=== PATIENT | female | born 1950 | race Caucasian/White ===

== ENCOUNTER 2019-09-06 09:37 | Observation (INO) | payer OTHER ==
[2019-09-06 10:20] LABS: Absolute Lymphocytes (CBC) 1.5 K/uL (0.7-4.9); Basophils % 0.8 % (0-1.3); Hematocrit 33.9 % (36.0-45.0); Lymphocytes % 32.3 % (15.3-44.8); MPV 9.3 fL (7.6-11.3); RBC Red Blood Cell Count 3.71 M/uL (3.86-4.86)
--- NOTE | 2019-09-06 10:33 | RAD REPORT ---
EXAM DESCRIPTION: RAD - Chest Single View - 09/06/2019 10:28 am CLINICAL HISTORY: CHEST PAIN Chest pain. COMPARISON: Chest Pa And Lat (2 Views) dated 10/07/2017 FINDINGS: Portable technique limits examination quality. The lungs are grossly clear. The heart is upper limit of normal in size. No displaced fractures. IMPRESSION: No acute intrathoracic process suspected.
--- NOTE | 2019-09-06 10:33 | RAD REPORT ---
EXAM DESCRIPTION: CT - Head Brain Wo Cont - 09/06/2019 10:16 am CLINICAL HISTORY: Headache;Syncope Headache, drowsiness COMPARISON: Brain Wo Cont dated 09/04/2019 TECHNIQUE: All CT scans are performed using dose optimization technique as appropriate and may inclu de automated exposure control or mA/KV adjustment according to patient size. FINDINGS: No intracranial hemorrhage, hydrocephalus or extra-axial fluid collection.No areas of brai n edema or evidence of midline shift. The paranasal sinuses and mastoids are clear. The calvarium is intact. IMPRESSION: No acute intracranial abnormality.
[2019-09-06 10:38] LABS: Protime INR 1.16
[2019-09-06 10:39] LABS: ALT/SGPT 31 U/L (12-78); AST/SGOT 32 U/L (15-37); Alkaline Phosphatase 90 U/L (45-117); BUN Blood Urea Nitrogen 15 mg/dL (7-18); Bicarbonate 22 mmol/L (21-32); Bilirubin Direct 0.1 mg/dL (0-0.2); Bilirubin Total 0.4 mg/dL (0.2-1.0); Glucose Level 127 mg/dL (74-106); Magnesium 1.9 mg/dL (1.8-2.4); NT PRO-BNP 290 pg/mL (<125); Protein, Total 5.9 g/dL (6.4-8.2); Sodium Level 145 mmol/L (136-145); Troponin (Emerg Dept Use Only) < 0.02 ng/mL (0.0-0.045)
[2019-09-06] MEDS ORDERED: NA CHLORIDE 0.9% 500 ML ONE (10:53)
--- NOTE | 2019-09-06 10:58 | EDPHYS ---
Physician Documentation [facility] Name: Chloé Engel Age: 69 yrs Sex: Female : 1950 Arrival Date: 09/06/2019 Time: 09:51 Bed 2 Private MD: ED Physician Javier Estrada HPI: 09/05 10:22 This 69 yrs old Female presents to ER via Unassigned with complaints of cp Syncope. 10:22 The patient has experienced syncope, lost consciousness. Onset: The symptoms/episode cp began/occurred this morning. Duration: This was a single episode, that lasted an unknown period of time. 10:22 Associated injury: The patient did not suffer any apparent associated injury. cp 10:22 Associated signs and symptoms: Pertinent positives: chest pain, dizziness, Pertinent cp negatives: abdominal pain, diaphoresis, diarrhea, headache, numbness, palpitations, vomiting, weakness. Current symptoms: Currently, the patient is not experiencing any symptoms, the patient feels back to baseline. Historical: - Allergies: 10:26 Vicodin; jl7 10:26 [place]; jl7 10:26 Keflex; jl7 10:26 PENICILLINS; jl7 - Home Meds: 10:26 atorvastatin oral oral [Active]; carvedilol oral oral [Active]; jl7 - PMHx: 10:26 Sjogren's Syndrome; Fibromyalgia; Hyperlipidemia; Hypertension; jl7 - Immunization history:: Adult Immunizations unknown. - Social history:: Smoking status: Patient denies any tobacco usage or history of. ROS: 10:23 Constitutional: Negative for body aches, chills, fever, poor PO intake. cp 10:23 ENT: Negative for ear pain, sore throat, difficulty swallowing, difficulty handling secretions. 10:23 Cardiovascular: Positive for chest pain, Negative for edema, palpitations. 10:23 Respiratory: Negative for cough, shortness of breath, wheezing. 10:23 Abdomen/GI: Negative for abdominal pain, nausea, vomiting, and diarrhea. 10:23 Back: Negative for radiated pain. 10:23 MS/extremity: Negative for injury or acute deformity, paresthesias. 10:23 Neuro: Positive for headache, syncope, Negative for altered mental status, weakness. 10:23 All other systems are negative. Exam: 10:10 ECG was reviewed by the Attending Physician. cp 10:25 Constitutional: The patient appears in no acute distress, alert, awake, cp non-diaphoretic, non-toxic, well developed, well nourished. 10:25 Head/Face: Normocephalic, atraumatic. cp 10:25 Eyes: Periorbital structures: appear normal, Pupils: equal, round, and reactive to light and accomodation, Extraocular movements: intact throughout, Conjunctiva: normal, no exudate, no injection, Sclera: no appreciated abnormality, Lids and lashes: appear normal, bilaterally. 10:25 ENT: External ear(s): are unremarkable, Nose: is normal, Mouth: Lips: moist, Oral mucosa: moist, Posterior pharynx: Airway: no evidence of obstruction, patent. 10:25 Neck: ROM/movement: is normal, is supple, without pain, no range of motions limitations, no nuchal rigidity. 10:25 Chest/axilla: Inspection: normal, Palpation: is normal, no crepitus, no tenderness. 10:25 Cardiovascular: Rate: bradycardic, Rhythm: regular, Edema: is not appreciated, JVD: is not appreciated. 10:25 Respiratory: the patient does not display signs of respiratory distress, Respirations: normal, no use of accessory muscles, no retractions, labored breathing, is not present. 10:25 Abdomen/GI: Inspection: abdomen appears normal, Bowel sounds: active, all quadrants, cp Palpation: abdomen is soft and non-tender, in all quadrants, involuntary guarding, is not appreciated, Rectal exam: Stool: brown, guaiac negative. 10:25 Back: pain, is absent, ROM is normal. cp 10:25 Neuro: Orientation: to person, place \T\ time. Mentation: is normal, Cerebellar function: is grossly normal, Motor: moves all fours, strength is normal, Sensation: is normal. Vital Signs: 09:45 BP 106 / 68; Pulse 53; Resp 15; Temp 97.2; Pulse Ox 100% ; Weight 64.86 kg; Height 5 jl7 ft. 3 in. (160.02 cm); Pain 8/10; 10:31 BP 117 / 66; Pulse 56; Resp 15; Pulse Ox 100% ; jl7 10:43 BP 127 / 64 LA Supine; Pulse 56; jl7 10:45 BP 129 / 73 Sitting; Pulse 58; jl7 10:47 BP 107 / 72 Standing; Pulse 56; jl7 10:57 BP 120 / 65 RA; Pulse 57; Resp 16; Pulse Ox 100% ; jl7 11:30 BP 127 / 66; Pulse 55; Resp 17; Pulse Ox 100% ; jl7 12:15 BP 118 / 68; Pulse 55; Resp 14; Pulse Ox 100% ; jl7 13:30 BP 123 / 64; Pulse 53; Resp 17; Pulse Ox 100% ; jl7 14:05 BP 116 / 71; Pulse 55; Resp 15; Pulse Ox 100% ; jl7 09:45 Body Mass Index 25.33 (64.86 kg, 160.02 cm) 7 MDM: 09:58 Patient medically screened. 10:30 Differential Diagnosis: aortic aneurysm, cardiac arrhythmia, drug effect, idiopathic cp syncope, seizure, sepsis, transient ischemic attack, vasovagal episode. 10:55 Data reviewed: vital signs, nurses notes, lab test result(s), EKG, radiologic studies, cp CT scan, plain films. Test interpretation: by ED physician or midlevel provider: ECG. 10:56 Physician consultation: Cj Anaya MD was called at 10:50, was contacted at 10:50, regarding admission, to the telemetry unit. patient's condition. 11:00 Counseling: I had a detailed discussion with the patient and/or guardian regarding: the cp historical points, exam findings, and any diagnostic results supporting the discharge/admit diagnosis, lab results, radiology results, the need for further work-up and treatment in the hospital. 09/05 09:58 Order name: Finger stick results - FOR PT WITH NO ID; Complete Time: 11:16 [facility] 09/05 10:00 Order name: Basic Metabolic Panel; Complete Time: 10:45 09/05 10:51 Interpretation: Normal except: CL 117; GLUC 127; GFR 82. cp 09/05 10:00 Order name: CBC with Diff; Complete Time: 10:45 09/05 10:45 Interpretation: Normal except: RBC 3.71; HGB 11.3; HCT 33.9; PLT 119. 09/05 10:00 Order name: LFT's; Complete Time: 10:45 09/05 10:00 Order name: Magnesium; Complete Time: 10:45 09/05 10:00 Order name: NT PRO-BNP; Complete Time: 10:45 cp 09/05 10:00 Order name: PT-INR; Complete Time: 10:45 cp 09/05 10:00 Order name: Troponin (emerg Dept Use Only); Complete Time: 10:45 cp 09/05 11:43 Order name: Basic Metabolic Panel EDMS 09/05 11:43 Order name: Basic Metabolic Panel EDMS 09/05 11:43 Order name: CBC with Automated Diff EDMS 09/05 11:43 Order name: CBC with Automated Diff EDMS 09/05 11:43 Order name: Troponin I EDMS 09/05 11:43 Order name: Troponin I EDMS 09/05 10:00 Order name: XRAY Chest (1 view); Complete Time: 10:45 cp 09/05 10:00 Order name: EKG; Complete Time: 10:01 cp 09/05 10:00 Order name: Cardiac monitoring; Complete Time: 10:20 cp 09/05 10:00 Order name: EKG - Nurse/Tech; Complete Time: 10:20 cp 09/05 10:00 Order name: IV Saline Lock; Complete Time: 10:20 cp 09/05 10:00 Order name: Labs collected and sent; Complete Time: 10:20 cp 09/05 10:00 Order name: CT Head Brain wo Cont; Complete Time: 10:45 cp 09/05 11:43 Order name: Echo with Doppler EDMS 09/05 11:43 Order name: EKG Electrocardiogram EDMS 09/05 11:43 Order name: EKG Electrocardiogram EDMS 09/05 11:43 Order name: EKG Electrocardiogram EDMS 09/05 11:43 Order name: EKG Electrocardiogram EDMS 09/05 11:43 Order name: Troponin I EDMS 09/05 11:43 Order name: Carotid Artery Bilateral EDMS 09/05 10:00 Order name: O2 Per Protocol; Complete Time: 10:20 cp 09/05 10:00 Order name: O2 Sat Monitoring; Complete Time: 10:20 cp 09/05 10:00 Order name: Blood Pressure Recheck: bilateral upper extremity; Complete Time: 10:54 cp 09/05 10:00 Order name: Orthostatics; Complete Time: 10:54 cp EC:10 Rate is 49 beats/min. Rhythm is regular. MS interval is prolonged at 210 msec. QRS cp interval is normal. QT interval is normal. Interpreted by me. Reviewed by me. Administered Medications: 10:54 Drug: NS 0.9% 500 ml Route: IV; Rate: bolus; Site: left antecubital; jl7 11:45 Follow up: Response: No adverse reaction; IV Status: Completed infusion; IV Intake: jl7 500ml 12:36 Drug: NS 0.9% 1000 ml Route: IV; Rate: 100 ml/hr; Site: left wrist; jl7 12:40 Follow up: Response: No adverse reaction; IV Status: Infusion continued upon admission jl7 Point of Care Testing: Blood Glucose: 09:45 Blood Glucose: 108 mg/dL; jl7 Ranges: Critical Glucose Levels:Adult <50 mg/dl or >400 mg/dl <40 mg/dl or >180 mg/dl Disposition: 11:00 Chart complete. cp 17:24 Co-signature as Attending Physician, Javier Estrada MD I agree with the assessment and kdr plan of care. Disposition: 09/06/19 10:57 Hospitalization ordered by Cj Anaya for Observation. Preliminary diagnosis is Syncope and collapse. - Bed requested for Telemetry/MedSurg (observation). - Status is Observation. jl7 - Condition is Stable. - Problem is new. - Symptoms have improved. Signatures: Dispatcher [employer] EDMS Bertha Andrea Kevin, MD MD [facility] James Bauer PA PA cp Rafi Stevenson, RN RN jl7 Corrections: (The following items were deleted from the chart) 13:16 10:57 Hospitalization Ordered by Cj Anaya MD for Observation. Preliminary diagnosis bd is Syncope and collapse. Bed requested for Telemetry/MedSurg (observation). Status is Observation. Condition is Stable. Problem is new. Symptoms have improved. cp 14:45 13:16 09/06/2019 10:57 Hospitalization Ordered by Cj Anaya MD for Observation. jl7 Preliminary diagnosis is Syncope and collapse. Bed requested for Telemetry/MedSurg (observation). Status is Observation. Condition is Stable. Problem is new. Symptoms have improved. bd
--- NOTE | 2019-09-06 10:58 | ER ---
Nurse's Notes [facility] Name: Chloé Engel Age: 69 yrs Sex: Female : 1950 Arrival Date: 09/06/2019 Time: 09:51 Bed 2 Private MD: Diagnosis: Syncope and collapse Presentation: 09/05 09:45 Method Of Arrival: EMS: [facility] jl7 09:45 Chief complaint: EMS states: Pt was at rehab for neck pain, had a syncopal episode, did jl7 not hit her head. 09:45 Acuity: [place] 2 jl7 10:20 Coronavirus screen: Patient denies a cough. Patient denies shortness of breath or jl7 difficulty breathing. Patient denies measured and/or subjective temperature greater than 100.4F prior to today's visit. Patient denies travel on a cruise ship or to a country the [facility] currently lists as an affected area. Patient denies contact with known and/or suspected case of COVID-19. Proceed with normal triage. Ebola Screen: No symptoms or risks identified at this time. Initial Sepsis Screen: Does the patient meet any 2 criteria? No. Patient's initial sepsis screen is negative. Does the patient have a suspected source of infection? No. Patient's initial sepsis screen is negative. Risk Assessment: Do you want to hurt yourself or someone else? Patient reports no desire to harm self or others. Onset of symptoms was September 06, 2019. Care prior to arrival: Medication(s) given: Normal saline infusion, 1000 mL, IV initiated. 20 GA, in the left antecubital area, Glucose check: 106 Initial BP 87 systolic, repeat just [facility] to hospital 116 systolic. Triage Assessment: 09:45 General: Appears in no apparent distress. uncomfortable, Behavior is calm, cooperative, jl7 appropriate for age. Pain: Complains of pain in left hip Pain currently is 8 out of 10 on a pain scale. Pain began years ago. Neuro: Level of Consciousness is awake, alert, obeys commands, Oriented to person, place, time, situation, Boiler Room Operator are equal bilaterally weak bilaterally Chronic weakness. Moves all extremities. Speech is normal, Facial symmetry appears normal, Reports a syncopal episode. Cardiovascular: Patient's skin is warm and dry. Rhythm is sinus bradycardia with 1st degree heart block Chest pain is denied. Respiratory: Airway is patent Respiratory effort is even, unlabored, shallow, Respiratory pattern is regular, symmetrical. GI: No signs and/or symptoms were reported involving the gastrointestinal system. : No signs and/or symptoms were reported regarding the genitourinary system. Derm: Skin is pink, warm \T\ dry. Historical: - Allergies: 10:26 Vicodin; jl7 10:26 [place]; jl7 10:26 Keflex; jl7 10:26 PENICILLINS; jl7 - Home Meds: 10:26 atorvastatin oral oral [Active]; carvedilol oral oral [Active]; jl7 - PMHx: 10:26 Sjogren's Syndrome; Fibromyalgia; Hyperlipidemia; Hypertension; jl7 - Immunization history:: Adult Immunizations unknown. - Social history:: Smoking status: Patient denies any tobacco usage or history of. Screenin:31 Abuse screen: Denies threats or abuse. Denies injuries from another. Nutritional jl7 screening: No deficits noted. Tuberculosis screening: No symptoms or risk factors identified. Fall Risk IV access (20 points). Total Huynh Fall Scale indicates No Risk (0-24 pts). Assessment: 09:45 General: See triage assessment. jl7 10:45 Reassessment: ERP at bedside discussing results and POC. jl7 10:45 Neuro: Level of Consciousness is awake, alert, obeys commands, Oriented to person, jl7 place, time, situation. Cardiovascular: Patient's skin is warm and dry. 12:00 Reassessment: Patient appears in no apparent distress at this time. No changes from jl7 previously documented assessment. Patient and/or family updated on plan of care and expected duration. Pain level reassessed. Patient is alert, oriented x 3, equal unlabored respirations, skin warm/dry/pink. 12:37 Reassessment: Pt requesting to go to bathroom. Pt transported to bathroom via 7 wheelchair. 12:38 Reassessment: pt's daughter [phone]. jl7 12:38 Cardiovascular: Chest pain is denied. jl7 13:30 Reassessment: Patient appears in no apparent distress at this time. No changes from jl7 previously documented assessment. Patient and/or family updated on plan of care and expected duration. Pain level reassessed. Patient is alert, oriented x 3, equal unlabored respirations, skin warm/dry/pink. 14:27 Reassessment: Patient appears in no apparent distress at this time. No changes from jl7 previously documented assessment. Patient and/or family updated on plan of care and expected duration. Pain level reassessed. Patient is alert, oriented x 3, equal unlabored respirations, skin warm/dry/pink. Vital Signs: 09:45 BP 106 / 68; Pulse 53; Resp 15; Temp 97.2; Pulse Ox 100% ; Weight 64.86 kg; Height 5 jl7 ft. 3 in. (160.02 cm); Pain 8/10; 10:31 BP 117 / 66; Pulse 56; Resp 15; Pulse Ox 100% ; jl7 10:43 BP 127 / 64 LA Supine; Pulse 56; jl7 10:45 BP 129 / 73 Sitting; Pulse 58; jl7 10:47 BP 107 / 72 Standing; Pulse 56; jl7 10:57 BP 120 / 65 RA; Pulse 57; Resp 16; Pulse Ox 100% ; jl7 11:30 BP 127 / 66; Pulse 55; Resp 17; Pulse Ox 100% ; jl7 12:15 BP 118 / 68; Pulse 55; Resp 14; Pulse Ox 100% ; jl7 13:30 BP 123 / 64; Pulse 53; Resp 17; Pulse Ox 100% ; jl7 14:05 BP 116 / 71; Pulse 55; Resp 15; Pulse Ox 100% ; jl7 09:45 Body Mass Index 25.33 (64.86 kg, 160.02 cm) jl7 ED Course: 09:45 Arm band placed on right wrist. jl7 09:45 Patient has correct armband on for positive identification. Placed in gown. Bed in low jl7 position. Call light in reach. Side rails up X 1. court recording monitor on. Pulse ox on. NIBP on. Warm blanket given. 09:45 Maintain EMS IV. Dressing intact. Good blood return noted. Site clean \T\ dry. Gauge \T\ jl 7 site: 20 Right AC. 09:50 Initial lab(s) drawn, by me, sent to lab. EKG done, by ED staff, reviewed by James MARCH. 09:51 Patient arrived in ED. jl7 09:52 [facility] cp 09:52 Javier Estrada MD is Attending Physician. cp 10:16 CT Head Brain wo Cont In Process Unspecified. EDMS 10:23 Triage completed. jl7 10:28 XRAY Chest (1 view) In Process Unspecified. EDMS 10:33 Rafi Stevenson RN is Primary Nurse. jl7 10:56 Cj Anaya MD is Hospitalizing Provider. cp 11:01 Served as a cofounder during rectal exam. jl7 12:01 Missed attempt(s): 20 gauge in right forearm. mt 12:17 Inserted saline lock: 22 gauge in left wrist, using aseptic technique. ks7 13:39 Echocardiogram with doppler done by staff technologist. tc 14:28 Patient admitted, IV remains in place. intact, No redness/swelling at site. jl7 Administered Medications: 10:54 Drug: NS 0.9% 500 ml Route: IV; Rate: bolus; Site: left antecubital; jl7 11:45 Follow up: Response: No adverse reaction; IV Status: Completed infusion; IV Intake: jl7 500ml 12:36 Drug: NS 0.9% 1000 ml Route: IV; Rate: 100 ml/hr; Site: left wrist; jl7 12:40 Follow up: Response: No adverse reaction; IV Status: Infusion continued upon admission jl7 Point of Care Testing: Blood Glucose: 09:45 Blood Glucose: 108 mg/dL; jl7 Ranges: Intake: 11:45 IV: 500ml; Total: 500ml. jl7 Outcome: 10:57 Decision to Hospitalize by Provider. cp 14:27 Admitted to Tele accompanied by [facility], via wheelchair, room 230, with chart, Report jl7 called to GRETA Falcon 14:27 Condition: stable 14:27 Discharge instructions given to patient, Instructed on the need for admit, Demonstrated understanding of instructions. 14:45 Patient left the ED. jl7 Signatures: Dispatcher [employer] EDMS Loulou Worrell, line patrolman EKG Ttc James Bauer PA PA Rafi Stevenson RN RN jl7 Thompson, Moriah Darcie Thompson RN RN ks7 Corrections: (The following items were deleted from the chart) 10:30 10:20 Chief complaint: EMS states: Pt was at rehab for neck pain, had a syncopal jl7 episode, did not hit her head jl7 10:30 10:20 Method Of Arrival: EMS: [facility] jl7 jl7 10:30 10:20 BP 116 / 68; Pulse 53bpm; Resp 15bpm; Pulse Ox 100%; Temp 97.2F; 64.86 kg; Height jl7 5 ft. 3 in.; BMI: 25.3; Pain 8/10; jl7 10:30 10:20 Acuity: [place] 2 jl7 jl7 14:26 09:45 BP 0 / 68; Pulse 53bpm; Resp 15bpm; Pulse Ox 100%; Temp 97.2F; 64.86 kg; Height 5 jl7 ft. 3 in.; BMI: 25.3; Pain 8/10; jl7
--- OUTSIDE RECORDS SUMMARY | 2019-09-06 11:13 | XMS REPORT | Continuity of Care Document ---
:1950 Author Organization [employer] [facility] Care Team Providers Name Role Phone [employer] [facility] Unavailable Un available Problems Problem Status Onset Classification Date Comments Sourc e Date Reported Cervical Active Problem 08/26/2019 [facility] radiculopathy Neuro (disorder) Headache (finding) Active Problem 08/26/2019 [facility] Hyperlipidemia Active Problem 08/26/2019 Misc her (disorder) Neuro Hypertensive Active Problem 08/26/2019 [facility] r disorder, systemic N euro arterial (disorder) Paresthesia Active Problem 08/26/2019 [facility] (finding) Neuro Peripheral nerve Active Problem 08/26/2019 Mi jose disease (disorder) N euro Lumbar Active Problem 08/26/2019 [facility] radiculopathy Neuro (disorder) Amnesia (finding) Active Problem 08/26/2019 [facility] Neuro Medications Medication Details Route Status Patient Ordering Order Source Instructions Provider Date baclofen 10 mg oral 10 mg = 1 Active Mi jose tablet tab, PO, 020 Neuro Bedtime, # 30 tab, 3 Refill(s), Pharmacy: [facility] [id number] DULoxetine 60 mg 60 mg = 1 Active Misch er oral delayed release cap, PO, 019 Ne uro capsule Daily, # 30 cap, 0 Refill(s) Hydroxychloroquine 200 mg = 1 Active Mi jose Sulfate 200 MG Oral tab, PO, 019 Millie ro Tablet Daily, 0 Refill(s) SUMAtriptan 50 mg 50 mg = 1 Active Misc her oral tablet tab, PO, 019 Neuro ONCE, 0 Refill(s) atorvastatin 80 mg 80 mg = 1 Active Mis rocio oral tablet tab, PO, 019 Neuro Bedtime, # 30 tab, 0 Refill(s) montelukast 10 mg 10 mg = 1 Active Misc her oral tablet tab, PO, 019 Neuro Daily, 0 Refill(s) ramipril 10 mg oral 10 mg = 1 Active Mi jose capsule cap, PO, 019 Neuro Daily, # 30 cap, 0 Refill(s) topiramate 100 mg 100 mg = 1 Active Mis rocio oral tablet tab, PO, 019 Neuro BID, 0 Refill(s) carvedilol 25 mg 25 mg = 1 Active Misch er oral tablet tab, PO, 019 Neuro BID, # 180 tab, 0 Refill(s) Allergies, Adverse Reactions, Alerts Substance Category Reaction Severity Reaction Status Date Comments S ource type Reported sulfa drugs Assertion Drug Active Mi jose allergy Neuro codeine Assertion Drug Active Mische r allergy Neuro penicillin Assertion Drug Active Mis rocio allergy Neuro Vicodin Assertion Drug Active Mische r allergy Neuro meloxicam Assertion Drug Active Misc her allergy Neuro traMADol Assertion Drug Active Misch er allergy Neuro HYDROcodone Assertion Drug Active Mi jose allergy Neuro Immunizations No Data Provided for This Section Results Order Name Results Value Reference Date Interpretation Comments Masha rce Range ANEMIA Vitamin B12 704 200 - 1100 08/23 Result [facility] STUDY Lvl Comment: Neuro FASTING:YES<b r/>
FASTI NG: YES

Lab test performed by:
[facility]
[address] [facility]
[place] [address]
Misael Diggs CHEM PANEL Glucose Lvl 98 65 - 99 08/23 Result [facility] /2019 Comment: Neuro
Fasting reference interval

Lab test performed by:
[facility]
[address] [facility]
[place] [address]
Misael Diggs CHEM PANEL BUN 15 7 - 25 08/23cher /2019 Neuro CHEM PANEL Creatinine 0.67 0.50 - 08/23 Result [facility] Lvl 0.99 Comment: For Neuro patients >49 years of age, the reference limit
for Creatinine is approximately 13% higher for people
id entified as -Ameri can. CHEM PANEL eGFR NON-AFR. 90 > OR = 60 08/23 Misch er [place] mL/min/1.7 /2020 Neuro 3m2 CHEM PANEL eGFR 104 > OR = 60 08/23 Mische r [place] mL/min/1.7 /2020 Neuro 3m2 CHEM PANEL B/C Ratio NOT 6 - 22 08/23 [facility] APPLICABLE /2019 Neuro CHEM PANEL Sodium Lvl 143 135 - 146 08/23 [facility] /2019 Neuro CHEM PANEL Potassium Lvl 4.0 3.5 - 5.3 08/23 Misch er /2019 Neuro CHEM PANEL Chloride Lvl 110 98 - 110 08/23 [facility] /2019 Neuro CHEM PANEL CO2 26 20 - 32 / [facility] /2020 Neuro CHEM PANEL Calcium Lvl 9.1 8.6 - 10.4 08/23 Mische r /2019 Neuro CHEM PANEL Total Protein 6.4 6.1 - 8.1 08/23 Misch er /2019 Neuro CHEM PANEL Albumin Lvl 3.8 3.6 - 5.1 08/23 [facility] /2019 Neuro CHEM PANEL Globulin 2.6 1.9 - 3.7 08/23 [facility] /2019 Neuro CHEM PANEL A/G Ratio 1.5 1.0 - 2.5 08/23 [facility] /2019 Neuro CHEM PANEL Bili Total 0.5 0.2 - 1.2 08/23 [facility] /2019 Neuro CHEM PANEL Alk Phos 100 37 - 153 08/23 [facility] /2019 Neuro CHEM PANEL ASPARTATE 21 10 - 35 08/23 [facility] TRANSAMINASE /2019 Neuro CHEM PANEL ALANINE 16 6 - 29 08/23 [facility] AMINOTRANSFER /2019 Neuro ASE HEMATOLOGY WBC X 10x3 6.1 3.8 - 10.8 08/23 Result /2019 Comment: Neuro
Lab test performed by:
[facility]
[address] [facility] [address]
[place] [address]
Misael Diggs HEMATOLOGY RBC X 10x6 4.05 3.80 - 08/23 [facility] 5.10 /2020 Neuro HEMATOLOGY Hgb 12.2 11.7 - 08/23 [facility] 15.5 /2020 Neuro HEMATOLOGY Hct 37.6 35.0 - 08/23 [facility] 45.0 /2020 Neuro HEMATOLOGY MCV 92.8 80.0 - 08/23 [facility] 100.0 /2020 Neuro HEMATOLOGY MCH 30.1 27.0 - 08/23 [facility] 33.0 /2020 Neuro HEMATOLOGY MCHC 32.4 32.0 - 08/23 [facility] 36.0 Neuro HEMATOLOGY RDW 11.8 11.0 - 08/23 [facility] 15.0 Neuro HEMATOLOGY Platelet 144 140 - 400 08/23 [facility] Neuro HEMATOLOGY MPV 11.4 7.5 - 12.5 08/23 [facility] Neuro HEMATOLOGY Neutrophils # 3148 1500 - 08/23 [facility] 7800 Neuro HEMATOLOGY Lymphocytes # 2312 850 - 3900 08/23 Misc her /2019 Neuro HEMATOLOGY Monocytes # 451 200 - 950 08/23 [facility] Neuro HEMATOLOGY Eosinophils # 159 15 - 500 08/23 M[facility] r Neuro HEMATOLOGY Basophils # 31 0 - 200 08/23 [facility] HEMATOLOGY Segs 51.6 08/23 [facility] HEMATOLOGY Lymphocytes 37.9 08/23 [facility] Neuro HEMATOLOGY Monocytes 7.4 08/23 Mis Neuro HEMATOLOGY Eosinophils 2.6 08/23 [facility] HEMATOLOGY Basophils 0.5 08/23 [facility] HEMATOLOGY Sed Rate 9 < OR = 30 08/23 Result [facility] mm/hr Comment: Neuro
Lab test performed by:
[facility]
[address] [place] [address]
[place] [address]
Misael Diggs IMMUNOLOGY C-REACTIVE 0.6 <8.0 mg/L 08/23 Result [facility] Comment: Neuro
Lab test performed by:
[facility]
[address] [place] [address]
[place] [address]
Misael Diggs Pathology Reports No Data Provided for This Section Diagnostic Reports No Data Provided for This Section Consultation Notes No Data Provided for This Section Discharge Summaries No Data Provided for This Section History and Physicals No Data Provided for This Section Vital Signs Vital Sign Value Date Comments Source Systolic (mm Hg) 141 08/23/2019 [facility] Millie ro Diastolic (mm Hg) 80 08/23/2019 [facility] Ne uro Heart Rate 72 08/23/2019 [facility] Neuro Respitory Rate 16 08/23/2019 [facility] Neuro Height 162.56 cm 08/23/2019 [facility] Weight 65.909 08/23/2019 [facility] BMI Calculated 24.94 08/23/2019 [facility] Systolic (mm Hg) 150 06/16/2019 [facility] Millie ro Diastolic (mm Hg) 84 06/16/2019 [facility] Ne uro Heart Rate 84 06/16/2019 [facility] Respitory Rate 16 06/16/2019 [facility] Height 162.56 cm 06/16/2019 [facility] Weight 68.182 06/16/2019 [facility] BMI Calculated 25.8 06/16/2019 [facility] Systolic (mm Hg) 130 12/30/2018 [facility] Millie ro Diastolic (mm Hg) 76 12/30/2018 [facility] Ne uro Heart Rate 70 12/30/2018 [facility] Respitory Rate 16 12/30/2018 [facility] Height 162.56 cm 12/30/2018 [facility] Weight 68.636 12/30/2018 [facility] BMI Calculated 25.97 12/30/2018 [facility] Systolic (mm Hg) 136 10/13/2018 [facility] Millei ro Diastolic (mm Hg) 75 10/13/2018 [facility] Ne uro Heart Rate 61 10/13/2018 [facility] Respitory Rate 16 10/13/2018 [facility] Height 162.56 cm 10/13/2018 [facility] BMI Calculated 24.68 08/17/2018 [facility] Heart Rate 77 08/17/2018 [facility] Respitory Rate 16 08/17/2018 [facility] Systolic (mm Hg) 113 08/17/2018 [facility] Millie ro Diastolic (mm Hg) 71 08/17/2018 [facility] Ne uro Height 165.1 cm 08/17/2018 [facility] Neuro Weight 67.273 08/17/2018 [facility] Neuro Encounters Location Location Encounter Encounter Reason Attending ADM GA Stat us Source Details Type Number For Provider Date Date Visit [facility] Outpatient [id number] [place] 08/17 08/18 [facility] Neurology [facility] Outpatient [id number] [place] 09/13 [facility] MNA Outpatient [id number] [place] 09/13 09/14 [facility] Neurology [facility] Neuro [facility] Outpatient [id number] [place] 10/13 [facility] [place] MNA Outpatient [id number] [place] 10/13 10/14 [facility] Out[facility] [id number] [facility] 11[facility]15 [facility]ulatory [id number] [place] 11/15 11/15 [facility] Outpatient [id number] [facility] 11[facility]23 [facility] [place] [facility] [id number] [place] 11/23 11/23 [facility] Outpatient [id number] [facility] 12[facility]01 [facility]ulatory [id number] [place] 12/01 12/01 [facility] Outpatient [id number] [facility] 12[facility]30 [facility] Outpatient [id number] [place] 12/30 12/31 [facility] Outpatient [id number] [facility] 06/15 [facility]2020 [facility] MNA Outpatient [id number] Cj 06/15 06/16 [facility] /2019 Neuro [facility] Outpatient [id number] [facility] 08/22 [facility]NA Outpatient [id number] Cj 08/22 08/23 [facility] /2019 [facility] [id number] [facility] 10/04 [facility] Outpatient [id number] [facility] 12/18 [facility] [place] [facility] [id number] [facility] 12/18 [facility]2020 [place] Procedures No Data Provided for This Section Assessment and Plan No Data Provided for This Section Plan of Care No Data Provided for This Section Social History Social History Date Source Social History TypeResponse 08/23/2019 [facility] Smoking Status Never smoker; Exposure to Tobacco Smoke None; Cigarette Smoking Last 365 Days No; Reg Smoking Cessation Counseling No entered on: 08/23/19 Family History No Data Provided for This Section Advance Directives No Data Provided for This Section Functional Status No Data Provided for This Section
[2019-09-06] MEDS ORDERED: ONDANSETRON 4 MG/2 ML VIAL IV PRN (11:38)
[2019-09-06] MEDS ORDERED: NA CHLORIDE 0.9% 1,000 ML ONE (11:50)
[2019-09-06] MEDS: NA CHLORIDE 0.9% 1,000 ML IV SCH ×2 (12:00→17:14)
--- NOTE | 2019-09-06 13:28 | RAD REPORT ---
EXAM DESCRIPTION: - CP - 09/06/2019 1:14 pm CLINICAL HISTORY: syncope COMPARISON: No comparisons TECHNIQUE: Real-time sonographic evaluation of bilateral carotid and vertebral systems was performed . Boswell scale and Doppler interrogation were performed with waveform tracing bilaterally. FINDINGS: Normal high resistance waveforms are noted in both external carotid arteries. The common c arotid arteries and internal carotid arteries show normal low resistance waveforms. Mild plaquing changes are present in each bulb. Visually there is no significant luminal narrowing. N o suspicious waveform pattern seen. Peak systolic and end diastolic velocity values and the ICA/CCA r atios are in the non-hemodynamically significant range. Antegrade flow seen in both vertebral arteries. Velocity values and ratios were recorded and are retained in the patient's imaging records. IMPRESSION: No significant atherosclerotic changes noted. No evidence of a hemodynamically significant stenosis.
[2019-09-06 15:09] VITALS: BMI 24.5
[2019-09-06] MEDS ORDERED: ACETAMINOPHEN 500 MG TAB PO PRN (16:42)
[2019-09-06] MEDS ORDERED: ASPIRIN EC 81 MG TAB PO SCH (21:00)
[2019-09-06] MEDS ORDERED: BACLOFEN 10 MG TAB PO SCH (21:00)
[2019-09-07] MEDS: NA CHLORIDE 0.9% 1,000 ML IV SCH (03:14)
[2019-09-07 05:42] LABS: Absolute Lymphocytes (CBC) 2.3 K/uL (0.7-4.9); Basophils % 0.6 % (0-1.3); Lymphocytes % 39.6 % (15.3-44.8); MPV 9.2 fL (7.6-11.3); RBC Red Blood Cell Count 3.81 M/uL (3.86-4.86)
[2019-09-07 05:44] LABS: Potassium 3.7 mmol/L (3.5-5.1)
--- NOTE | 2019-09-07 06:32 | P.SSS ---
Patient History Date of Service: 09/07/19 Reason for admission: SYNCOPE History of Present Illness: MS. SERRANO IS A PATIENT WITH CERVICAL RADICULOPATHY, POLYARTHRITIS WITH OA, SHE WAS IN REHAB AND SHE HAD SEVERE PAIN IN L HAND WHILE DOING HAND THERAPY, THE PAIN WENT TO NECK AND SHE PASSED OUT. SHE HAS NO CHEST PAIN. Allergies acetaminophen [From Vicodin] Allergy (Verified 09/06/19 15:39) Nausea/Vomiting cephalexin [From Keflex] Allergy (Verified 09/06/19 15:39) Nausea/Vomiting codeine Allergy (Verified 09/06/19 15:39) Nausea/Vomiting hydrocodone [From Vicodin] Allergy (Verified 09/06/19 15:39) Nausea/Vomiting meloxicam Allergy (Verified 09/06/19 15:39) Nausea/Vomiting Penicillins Allergy (Verified 09/06/19 15:39) Nausea/Vomiting Home Medications: Acetaminophen [Tylenol Extra Strength] 1 tab PO BEDTIME PRN 09/06/19 Aspirin [Aspirin EC 81 MG] 1 tab PO BEDTIME 09/06/19 Atorvastatin Calcium [Lipitor] 1 tab PO DAILY 09/06/19 Baclofen [Lioresal*] 1 tab PO BEDTIME 09/06/19 Duloxetine HCl [Cymbalta] 1 cap PO DAILY 09/06/19 Montelukast [Singulair*] 1 tab PO DAILY 09/06/19 Ramipril [Altace] 1 tab PO DAILY 09/06/19 Topiramate [Topamax*] 1 tab PO DAILY 09/06/19 - Past Medical/Surgical History Has patient received pneumonia vaccine in the past: Yes Diabetic: No -: Sjogren's Syndrome -: Fibromyalgia -: Hyperlipidemia -: Hypertension - Social History Smoking Status: Never smoker Alcohol use: No CD- Drugs: No Caffeine use: Yes Place of Residence: Home Review of Systems 10-point ROS is otherwise unremarkable Physical Examination - Vital Signs Temperature: 97.5 F Blood Pressure: 125/67 Pulse: 56 Respirations: 16 Pulse Ox (%): 97 - Physical Exam General: Alert, In no apparent distress HEENT: Atraumatic, PERRLA, Mucous membr. moist/pink, EOMI, Sclerae nonicteric Neck: Supple, 2+ carotid pulse no bruit, No LAD, Without JVD or thyroid abnormality Respiratory: Clear to auscultation bilaterally, Normal air movement Cardiovascular: Regular rate/rhythm, Normal S1 S2 Gastrointestinal: Normal bowel sounds, No tenderness Musculoskeletal: No tenderness Integumentary: No rashes Neurological: Normal gait, Normal speech, Normal strength at 5/5 x4 extr, Normal tone, Normal affect Lymphatics: No axilla or inguinal lymphadenopathy - Studies Laboratory Data (last 24 hrs) 09/06/19 10:10: PT 13.7 H, INR 1.16 09/06/19 10:10: WBC 4.6, Hgb 11.3 L, Hct 33.9 L, Plt Count 119 L 09/06/19 10:10: Sodium 145, Potassium 4.0, BUN 15, Creatinine 0.71, Glucose 127 H, Magnesium 1.9, Total Bilirubin 0.4, AST 32, ALT 31, Alkaline Phosphatase 90 - Diagnosis (Problem(s)) (1) Vasovagal episode Current Visit: Yes Status: Acute Plan: THIS IS NOT WHAT WE NEED ADMISSION FOR BUT ER DECIDED TO ADMIT. SHE IS STABLE TO GO HOME. I SAW HER LAST NIGHT. (2) HTN (hypertension) Current Visit: Yes Status: Chronic (3) Cervical radicular pain Current Visit: Yes Status: Chronic Plan: SHE WAS SENT BY DR. FELIPE FOR PT. SHE NEEDS TO KNOW THAT THIS IS NOT A CURABLE CONDITION. SHE NEEDS TO TAKE COSAMINE ASU DAILY BUT SHE IS NOT DOING SO. I WOULD AVOID NSAIDS MOST END UP GIVING COMPLICATIONS. - Disposition Disposition: ROUTINE DISCHARGE
--- NOTE | 2019-09-07 07:34 | EKG ---
Test Date: 2019-09-06 Test Time: 10:05:21 [employer] Machine Operator: GAUTAM MEASUREMENT RESULTS: Intervals: Rate: 49 NE: 210 QRSD: 92 QT: 536 QTc: 484 [place]: P: 33 NE: 210 QRS: 0 T: 38 INTERPRETIVE STATEMENTS: Marked sinus bradycardia with 1st degree AV block Septal infarct, age undetermined Abnormal ECG No previous ECG available for comparison Electronically Signed On 09-07-19 07:32:32 CDT by Rex Cooney
[2019-09-07] MEDS ORDERED: DULOXETINE 30 MG CAP PO SCH (09:00)
[2019-09-07] MEDS ORDERED: HOME MED 1 EA UNK (Duloxetine Hcl [Cymbalta] 1 CAP) PO SCH (09:00)
[2019-09-07] MEDS ORDERED: ASPIRIN EC 81 MG TAB PO SCH (09:00)
[2019-09-07] MEDS ORDERED: MONTELUKAST 10 MG TAB PO SCH (09:00)
[2019-09-07] MEDS ORDERED: TOPIRAMATE 100 MG TAB PO SCH (09:00)
[2019-09-07] MEDS ORDERED: ATORVASTATIN 80 MG TAB PO SCH (09:00)
[2019-09-07 09:16] VITALS: O2SAT 96
--- NOTE | 2019-09-07 09:45 | ECHO ---
HEIGHT: 5 ft 4 in WEIGHT: 143 lb 0 oz DATE OF STUDY: 09/06/[address]: James Bauer PAC 2-DIMENSIONAL: YES M.MODE: YES DOPPLER: YES COLOR FLOW: YES TDS: NO PORTABLE: YES DEFINITY: NO BUBBLE STUDY: NO DIAGNOSIS: SYNCOPE CARDIAC HISTORY: CATHERIZATION: YES SURGERY: NO PROSTHETIC VALVE: NO PACEMAKER: NO MEASUREMENTS (cm) DIASTOLIC (NORMALS) SYSTOLIC (NORMALS) IVSd 1.2 (0.6-1.2) LA Diam 2.8 (1.9-4.0) LVEF 69% LVIDd 5.0 (3.5-5.7) LVIDs 3.1 (2.0-3.5) %FS 39% LVPWd 1.2 (0.6-1.2) Ao Diam 2.6 (2.0-3.7) 2 DIMENSIONAL ASSESSMENT: RIGHT ATRIUM: NORMAL LEFT ATRIUM: NORMAL RIGHT VENTRICLE: NORMAL LEFT VENTRICLE: NORMAL TRICUSPID VALVE: NORMAL MITRAL VALVE: NORMAL PULMONIC VALVE: NORMAL AORTIC VALVE: NORMAL PERICARDIAL EFFUSION: NONE AORTIC ROOT: NORMAL LEFT VENTRICULAR WALL MOTION: NORMAL DOPPLER/COLOR FLOW: NORMAL COMMENTS: NORMAL 2D ECHOCARDIOGRAM WITH DOPPLER. NO WALL MOTION ABNORMALITY. NO EFFUSION. TECHNOLOGIST: Nelsy العلي
[2019-09-07 09:52] VITALS: BP 133/67; TEMP 97
== END 2019-09-07 09:52 | disposition home or self-care (01) ==
LOC: ER 09:37 → ERHOLD 11:37 → 2ND 14:27
PROVIDERS: ADMIT Internal Medicine; ATTEND Internal Medicine
DX: R55 Syncope and collapse (principal); I10 Essential (primary) hypertension; M54.12 Radiculopathy, cervical region; M13.0 Polyarthritis, unspecified; Z11.59 Encounter for screening for other viral diseases; R00.1 Bradycardia, unspecified; I44.0 Atrioventricular block, first degree; R94.31 Abnormal electrocardiogram [ECG] [EKG]; M35.00 Sjogren syndrome, unspecified; M79.7 Fibromyalgia; E78.5 Hyperlipidemia, unspecified; Z79.899 Other long term (current) drug therapy
CPT/HCPCS: 93005; 93306; 85025 ×2; 80048 ×2; 36415; 83735; 85610; 82947 ×2; 80076; 84484 ×3; 83880; 70450; 71045; 93880; 96360; 99285; U0002; J7040; J7030 ×3; G0378 ×3

== ENCOUNTER 2020-07-03 06:01 | Day surgery (SDC) | payer OTHER ==
[2020-07-02 10:31] LABS: Absolute Lymphocytes (CBC) 1.3 K/uL (0.7-4.9); Basophils % 0.8 % (0-1.3); Hematocrit 39.6 % (36.0-45.0); Lymphocytes % 26.8 % (15.3-44.8); MPV 9.4 fL (7.6-11.3); RBC Red Blood Cell Count 3.98 M/uL (3.86-4.86)
[2020-07-02 10:37] LABS: Protime INR 1.1
--- NOTE | 2020-07-02 10:43 | RAD REPORT ---
EXAM DESCRIPTION: Brandt Hogan And Zakia (2 Views)07/02/2020 10:24 am CLINICAL HISTORY: Preop for cardiac catheterization COMPARISON: 2019 FINDINGS: The lungs appear clear of acute infiltrate. The heart is mildly enlarged. The aorta is to rtuous/ectatic IMPRESSION: No acute abnormalities displayed
[2020-07-02 10:51] LABS: Potassium 3.5 mmol/L (3.5-5.1)
[2020-07-03] MEDS ORDERED: HEPA 1000U/500MLS 1,000 UNIT/500 ML BAG IV ONE (07:01)
[2020-07-03] MEDS ORDERED: LIDOCAINE 1% 20 ML MDV ONE (07:01)
[2020-07-03 07:08] VITALS: TEMP 97.5
[2020-07-03] MEDS ORDERED: NA CHLORIDE 0.9% 500 ML ONE (07:08)
[2020-07-03] MEDS ORDERED: MIDAZOLAM HCL 2 MG/2 ML INJ ONE (07:27)
[2020-07-03] MEDS ORDERED: ATROPINE SULF 1 MG/10 ML SYR IV ONE (07:28)
[2020-07-03] MEDS ORDERED: NA CHLORIDE 0.9% 0 ML ONE (07:28)
[2020-07-03] MEDS ORDERED: FENTANYL CITR 100 MCG/2 ML ONE (07:28)
[2020-07-03 08:21] VITALS: O2SAT 100
[2020-07-03 09:41] VITALS: BP 133/65
--- NOTE | 2020-07-03 18:04 | OP ---
Date of Procedure: 07/03/2020 Surgeon: Rex Cooney MD Procedure: Left heart catheterization with selective coronary arteriogram. Indication: Abnormal stress test and history of coronary artery disease. Procedure In Detail: Ms. Engel is 70, was brought to the labor contractor today 07/03/2020 as an outpatient , prepped and draped in the routine sterile fashion. Given Versed for sedation. A 6-[place] sheath i ntroduced in the right common femoral artery successfully using the Seldinger technique in 10 mL of X ylocaine. Leilani catheter left and right were used to cannulate the left main and right main respec tively. She was found to have a dominant RCA with 2 patent stents in the mid RCA. Otherwise, the RC A was free of disease. The left main was normal. The circumflex was normal. The LAD had a patent s tent in the proximal LAD. She had about a 20% to 30% stenosis in the proximal LAD. The distal LAD w as very small, diffusely diseased, no focal stenosis. There were no complications. Blood loss was 5 mL. Postoperative Diagnosis: Coronary artery disease, moderate. Plan: To continue medical therapy. Anesthesia: Total conscious sedation was 45 minutes. Angiography in the groin was normal. Angio-Seal was used to close the case. The patient will remain in the hospital for 2 hours of bedrest. She will go home after that and she will see me in the office in 2 weeks. No change in medical thera py for now. KEVEN/ALBIN Voice ID: [id number] Report ID: [id number]
== END 2020-07-03 09:51 | disposition home or self-care (01) ==
LOC: CCL 06:01
DX: I25.10 Atherosclerotic heart disease of native coronary artery without angina pectoris (principal); I10 Essential (primary) hypertension; E78.2 Mixed hyperlipidemia; J45.21 Mild intermittent asthma with (acute) exacerbation; M79.7 Fibromyalgia; M06.9 Rheumatoid arthritis, unspecified; Z95.5 Presence of coronary angioplasty implant and graft; Z88.0 Allergy status to penicillin; Z88.1 Allergy status to other antibiotic agents; Z88.2 Allergy status to sulfonamides; Z88.6 Allergy status to analgesic agent; Z88.8 Allergy status to other drugs, medicaments and biological substances; Z20.822 Contact with and (suspected) exposure to COVID-19
CPT/HCPCS: 85025; 80048; 36415; 85610; 85730; 71046; 93454; U0003; C1893; C1760; J2250; J3010; J7040; J1644; J0583

== ENCOUNTER 2020-10-17 10:10 | Observation (INO) | payer OTHER ==
[2020-10-17 11:48] LABS: Urine Blood Negative (Negative); Urine Glucose Negative (Negative); Urine Protein Negative (Negative); Urine Specific Gravity 1.025 (1.005-1.030)
[2020-10-17 16:48] VITALS: BMI 20.2
--- NOTE | 2020-10-17 16:59 | ER ---
Nurse's Notes [facility] Name: Chloé Engel Age: 70 yrs Sex: Female : 1950 Arrival Date: 10/17/2020 Time: 10:14 Bed Direct Admit Private MD: Rex Cooney S; Cj Anaya V Diagnosis: Palpitations;Supraventricular tachycardia Presentation: 10/17 10:17 Chief complaint: Patient states: Dr. Cooney sent me here for admission for AFIB/SVT. tw2 12:19 Coronavirus screen: At this time, the client does not indicate any symptoms associated jd3 with coronavirus-19. Ebola Screen: Patient negative for fever greater than or equal to 101.5 degrees Fahrenheit, and additional compatible Ebola Virus Disease symptoms. Initial Sepsis Screen: Does the patient meet any 2 criteria? No. Patient's initial sepsis screen is negative. Does the patient have a suspected source of infection? No. Patient's initial sepsis screen is negative. Risk Assessment: Do you want to hurt yourself or someone else? Patient reports no desire to harm self or others. Onset of symptoms was October 15, 2020. 12:19 Method Of Arrival: Ambulatory jd3 Triage Assessment: 10:19 General: Appears in no apparent distress. slender, well groomed, Behavior is calm, tw2 cooperative, appropriate for age. Pain: Denies pain. Historical: - Allergies: 10:19 PENICILLINS; tw2 10:19 Vicodin; tw2 10:19 Burt; tw2 10:19 Keflex; tw2 10:19 Sulfa (Sulfonamide Antibiotics); tw2 10:19 acetaminophen; tw2 10:19 cephalexin; tw2 10:19 tramadol; tw2 10:19 meloxicam; tw2 10:19 hydrocodone; tw2 - Home Meds: 10:19 Ramipril Oral [Active]; Singulair Oral [Active]; Lipitor Oral [Active]; duloxetine oral tw2 [Active]; Baclofen Oral [Active]; topiramate oral [Active]; hydrochloroquine [Active]; Folic Acid Oral [Active]; 10:24 Methotrexate Sodium Oral [Active]; tw2 - PMHx: 10:19 Fibromyalgia; Hyperlipidemia; Hypertension; Sjogren's Syndrome; tw2 - Immunization history:: Client reports having NOT received the Covid vaccine. - Social history:: Smoking status: Patient denies any tobacco usage or history of. Screenin:19 Abuse screen: Denies threats or abuse. Nutritional screening: No deficits noted. jd3 Tuberculosis screening: No symptoms or risk factors identified. Fall Risk Ambulatory Aid- None/Bed Rest/Nurse Assist (0 pts). Gait- Normal/Bed Rest/Wheelchair (0 pts) Mental Status- Oriented to own ability (0 pts). Total Huynh Fall Scale indicates No Risk (0-24 pts). Assessment: 12:15 General: Appears in no apparent distress. comfortable, Behavior is calm, cooperative, jd3 appropriate for age, Reports fatigue for 1-2 days. Pain: Denies pain. Neuro: Level of Consciousness is awake, alert, obeys commands, Oriented to person, place, time, situation. Cardiovascular: Denies chest pain, Capillary refill < 3 seconds Patient's skin is warm and dry. Rhythm is sinus rhythm. Respiratory: Reports shortness of breath on exertion Airway is patent Respiratory effort is even, unlabored, Respiratory pattern is regular, symmetrical, Denies cough. GI: No signs and/or symptoms were reported involving the gastrointestinal system. : No signs and/or symptoms were reported regarding the genitourinary system. EENT: No signs and/or symptoms were reported regarding the EENT system. Derm: Skin is intact, Skin is dry, Skin is normal, Skin temperature is warm. Musculoskeletal: Circulation, motion, and sensation intact. Range of motion: intact in all extremities. 12:17 Reassessment: awaiting Dr. Ochoa to discuss plan of care with Dr. Olson to get pt jd3 admitted. Vital Signs: 10:18 BP 142 / 82; Pulse 71; Resp 17; Temp 98.4(TE); Pulse Ox 100% on R/A; Weight 53.52 kg tw2 (R); Height 5 ft. 5 in. (165.10 cm); Pain 0/10; 12:20 BP 146 / 76; Pulse 64; Resp 18 S; Pulse Ox 100% on R/A; jd3 10:18 Body Mass Index 19.64 (53.52 kg, 165.10 cm) tw2 ED Course: 10:14 Patient arrived in ED. as 10:14 Rex Cooney MD is Private Physician. as 10:14 Cj Anaya MD is Private Physician. as 10:23 Arm band placed on. tw2 12:15 Alan Fowler, RN is Primary Nurse. jd3 12:18 Patient has correct armband on for positive identification. Placed in gown. Bed in low jd3 position. Call light in reach. Side rails up X 1. Adult w/ patient. enrollment eligibility representative on. Pulse ox on. NIBP on. 12:19 No provider procedures requiring assistance completed. jd3 15:01 Inserted saline lock: 22 gauge in right antecubital area, using aseptic technique. jd3 Blood collected. Patient admitted, IV remains in place. 16:58 Rex Cooney MD is Hospitalizing Provider. kdr Administered Medications: No medications were administered Outcome: 16:59 Decision to Hospitalize by Provider. kdr 16:59 Patient left the ED. jd3 Signatures: Javier Estrada MD MD kdr Amada Sam as Nina Chandler, RN RN tw2 Alan Fowler, RN RN jd3
--- NOTE | 2020-10-17 16:59 | EDPHYS ---
Physician Documentation [facility] Name: Chloé Engel Age: 70 yrs Sex: Female : 1950 Arrival Date: 10/17/2020 Time: 10:14 Bed Direct Admit Private MD: Rex Cooney S; Cj Anaya V ED Physician Historical: - Allergies: 10/17 10:19 PENICILLINS; tw2 10:19 Vicodin; tw2 10:19 Beattie; tw2 10:19 Keflex; tw2 10:19 Sulfa (Sulfonamide Antibiotics); tw2 10:19 acetaminophen; tw2 10:19 cephalexin; tw2 10:19 tramadol; tw2 10:19 meloxicam; tw2 10:19 hydrocodone; tw2 - Home Meds: 10:19 Ramipril Oral [Active]; Singulair Oral [Active]; Lipitor Oral [Active]; duloxetine oral tw2 [Active]; Baclofen Oral [Active]; topiramate oral [Active]; hydrochloroquine [Active]; Folic Acid Oral [Active]; 10:24 Methotrexate Sodium Oral [Active]; tw2 - PMHx: 10:19 Fibromyalgia; Hyperlipidemia; Hypertension; Sjogren's Syndrome; tw2 - Immunization history:: Client reports having NOT received the Covid vaccine. - Social history:: Smoking status: Patient denies any tobacco usage or history of. Vital Signs: 10:18 BP 142 / 82; Pulse 71; Resp 17; Temp 98.4(TE); Pulse Ox 100% on R/A; Weight 53.52 kg tw2 (R); Height 5 ft. 5 in. (165.10 cm); Pain 0/10; 12:20 BP 146 / 76; Pulse 64; Resp 18 S; Pulse Ox 100% on R/A; jd3 10:18 Body Mass Index 19.64 (53.52 kg, 165.10 cm) tw2 MDM: 16:59 Patient medically screened. kdr 16:59 ED course: I did not see or evaluate this patient in any way. My interaction was with [facility] this chart was to complete the necessary documentation to get the patient admitted for Dr. Cooney. I have attempted to contact both Dr. Cooney and Dr. Anaya to confirm the admissions status to Dr. Cooney. Neither one has returned my call or text. 10/17 11:48 Order name: Urine Dipstick-Ancillary EDMS 10/17 15:37 Order name: SARS-COV-2 RT PCR EDMS Administered Medications: No medications were administered Disposition Summary: 10/17/20 16:59 Hospitalization Ordered Hospitalization Status: Observation kdr Provider: Rex Cooney Location: Telemetry/MedSurg (observation) kdr Condition: Fair kdr Problem: new kdr Symptoms: have improved kdr Bed/Room Type: Standard kdr Room Assignment: kdr Diagnosis - Palpitations kdr - Supraventricular tachycardia kdr Discharge Instructions: - Discharge Summary Sheet jd3 Forms: - Medication Reconciliation Form kdr - SBAR form jd3 Signatures: Dispatcher [employer] EDMS Javier Estrada MD MD kdr Nina Chandler RN RN tw2
[2020-10-17 17:14] VITALS: O2SAT 100
[2020-10-17 17:16] LABS: Absolute Lymphocytes (CBC) 1.3 K/uL (0.7-4.9); Basophils % 1.1 % (0-1.3); Hematocrit 37.8 % (36.0-45.0); Lymphocytes % 28.5 % (15.3-44.8); MPV 9.2 fL (7.6-11.3); RBC Red Blood Cell Count 3.84 M/uL (3.86-4.86)
[2020-10-17] MEDS: SOTALOL HCL 80 MG TAB PO SCH (17:23)
[2020-10-17 17:28] LABS: BUN Blood Urea Nitrogen 9 mg/dL (7-18); Bicarbonate 27 mmol/L (21-32); Glucose Level 101 mg/dL (74-106); Potassium 4.4 mmol/L (3.5-5.1); Sodium Level 146 mmol/L (136-145)
[2020-10-18] MEDS: SOTALOL HCL 80 MG TAB PO SCH ×2 (06:41→17:11)
[2020-10-18 17:26] VITALS: BP 123/70; TEMP 98.6
== END 2020-10-18 18:50 | disposition home health service (06) ==
LOC: ER 10:10 → ERHOLD 10:17 → 2ND 16:15
DX: I47.1 Supraventricular tachycardia (principal); R00.2 Palpitations; I10 Essential (primary) hypertension; E78.5 Hyperlipidemia, unspecified; M79.7 Fibromyalgia; M35.09 Sjogren syndrome with other organ involvement; Z20.822 Contact with and (suspected) exposure to COVID-19; Z88.0 Allergy status to penicillin; Z88.1 Allergy status to other antibiotic agents; Z88.2 Allergy status to sulfonamides; Z88.3 Allergy status to other anti-infective agents; Z88.6 Allergy status to analgesic agent; Z88.8 Allergy status to other drugs, medicaments and biological substances
CPT/HCPCS: 93005; 85025; 80048; 36415; 81003; 99281; U0003; G0378

== ENCOUNTER 2021-12-26 14:15 | Emergency (ER) | payer OTHER ==
[2021-12-26 16:35] LABS: Lymphocytes % 31.1 % (15.3-44.8); MCV 93.4 fL (80-100); MPV 8.4 fL (7.6-11.3); RBC Red Blood Cell Count 4.07 M/uL (3.86-4.86)
[2021-12-26 16:42] LABS: Albumin 3.2 g/dL (3.4-5.0); Bilirubin Total 0.4 mg/dL (0.2-1.0); Potassium 3.8 mmol/L (3.5-5.1); Protein, Total 6.8 g/dL (6.4-8.2)
[2021-12-26 17:50] LABS: Urine Blood 3+ (Negative); Urine Glucose Negative (Negative); Urine Protein Negative (Negative); Urine Specific Gravity 1.025 (1.005-1.030); Urine pH 6.5 (5.0-7.0)
[2021-12-26 18:06] LABS: Urine Mucus Slight /HPF (None Seen); Urine RBC >50 /HPF (None Seen)
--- NOTE | 2021-12-26 18:09 | RAD REPORT ---
EXAM DESCRIPTION: CTAbdomen Pelvis W Contrast - 12/26/2021 5:54 pm CLINICAL HISTORY: Lower GI bleeding COMPARISON: Abdomen Pelvis W Contrast dated 11/15/2020 TECHNIQUE: CT of the abdomen and pelvis was performed. All CT scans are performed using dose optimization technique as appropriate and may include automated exposure control or mA/KV adjustment according to patient size. FINDINGS: Lower chest: R coronary artery stent. Liver: No acute abnormality or suspicious lesions. Biliary: Cholecystectomy. Stomach: No significant focal abnormality. Duodenum: No significant focal abnormality. Pancreas: No significant abnormality. Spleen: No significant abnormality. Adrenal: No suspicious lesions. Kidney/ureter: No hydronephrosis. No renal calculi. Left renal cyst. Retroperitoneum: No retroperitoneal adenopathy. Vascular: No aneurysm. Bowel: No significant focal abnormality. Moderate stool in the rectum. Peritoneum: No ascites or free air. Bladder: Grossly unremarkable. Reproductive: No adnexal masses. Bones: No acute fracture. Degenerative changes are present at L2-3. Grade 1 anterolisthesis of L4 on L5. Other: n/a IMPRESSION: No acute intra-abdominal or pelvic finding. No specific findings to explain GI bleed.
[2021-12-26] MEDS ORDERED: NITROFURAN MACRO 100 MG CAP PO ONE (19:01)
--- NOTE | 2021-12-26 19:21 | ER ---
Nurse's Notes [facility] Name: Chloé Engel Age: 71 yrs Sex: Female : 1950 Arrival Date: 12/26/2021 Time: 14:20 Bed 26 Private MD: Diagnosis: Hemorrhagic cystitis Presentation: 12/26 15:24 Chief complaint: Patient states: Rectal bleeding since 12/23/21, stated dark red blood, vg1 denies dark stools. Last BM was last night. Denies NVD. Coronavirus screen: Vaccine status: Patient reports being unvaccinated. Client denies travel out of the [place] in the last 14 days. Ebola Screen: Patient negative for fever greater than or equal to 101.5 degrees Fahrenheit, and additional compatible Ebola Virus Disease symptoms. Onset of symptoms was December 23, 2021. 15:24 Method Of Arrival: Ambulatory vg1 15:24 Acuity: MASON 3 vg1 Triage Assessment: 15:27 General: Appears comfortable, Behavior is cooperative. Pain: Complains of pain in right vg1 upper quadrant Pain currently is 4 out of 10 on a pain scale. Quality of pain is described as crampy. GI: Reports rectal bleeding, Patient currently denies diarrhea, nausea, vomiting. Historical: - Allergies: 15:27 ACETAMINOPHEN; vg1 15:27 Cephalexin; vg1 15:27 HYDROCODONE; vg1 15:27 Keflex; vg1 15:27 meloxicam; vg1 15:27 [place]; vg1 15:27 PENICILLINS; vg1 15:27 Sulfa (Sulfonamide Antibiotics); vg1 15:27 tramadol; vg1 15:27 Vicodin; vg1 - Home Meds: 15:27 topiramate Oral [Active]; Baclofen Oral [Active]; duloxetine Oral [Active]; vg1 hydrochloroquine [Active]; Ramipril Oral [Active]; atorvastatin oral [Active]; montelukast oral [Active]; Aspirin Oral [Active]; - PMHx: 15:27 Fibromyalgia; Hyperlipidemia; Hypertension; Sjogren's Syndrome; vg1 - Immunization history:: Client reports having NOT received the Covid vaccine. - Social history:: Smoking status: Patient denies any tobacco usage or history of. Screenin:12 Abuse screen: Denies threats or abuse. Denies injuries from another. Nutritional hb screening: No deficits noted. Tuberculosis screening: No symptoms or risk factors identified. Fall Risk None identified. Assessment: 16:00 General: Appears in no apparent distress. Behavior is calm, cooperative. Pain: Denies hb pain. Neuro: Level of Consciousness is awake, alert, obeys commands, Oriented to person, place, time, situation. Cardiovascular: Patient's skin is warm and dry. Respiratory: Respiratory effort is even, unlabored, Respiratory pattern is regular, symmetrical. GI: Reports cramping, rectal bleeding. : No signs and/or symptoms were reported regarding the genitourinary system. EENT: No signs and/or symptoms were reported regarding the EENT system. Derm: Skin is pink, warm \T\ dry. Musculoskeletal: No signs and/or symptoms reported regarding the musculoskeletal system. 17:51 Reassessment: Patient appears in no apparent distress at this time. Patient and/or hb family updated on plan of care and expected duration. Pain level reassessed. Patient is alert, oriented x 3, equal unlabored respirations, skin warm/dry/pink. 18:48 Reassessment: Patient appears in no apparent distress at this time. Patient and/or hb family updated on plan of care and expected duration. Pain level reassessed. Patient is alert, oriented x 3, equal unlabored respirations, skin warm/dry/pink. Vital Signs: 15:27 BP 168 / 90; Pulse 64; Resp 16; Temp 98.5; Pulse Ox 98% on R/A; Weight 61.23 kg; Height vg1 5 ft. 4 in. (162.56 cm); 15:27 Body Mass Index 23.17 (61.23 kg, 162.56 cm) vg1 ED Course: 14:20 Patient arrived in ED. as 15:27 Triage completed. vg1 15:27 Arm band placed on. vg1 15:33 Josh Patel PA is PHCP. [facility] 15:33 James Lopez MD is Attending Physician. m 16:05 Za Darden, GRETA is Primary Nurse. hb 16:18 Inserted saline lock: 20 gauge in right antecubital area, using aseptic technique. hb Blood collected. 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 hb 17:56 CT Abd/Pelvis - IV Contrast Only In Process Unspecified. EDMS 19:20 Fausto Peñaloza MD is Referral Physician. [facility] Administered Medications: 19:20 Drug: Nitrofurantoin 100 mg Route: PO; 20:01 Follow up: Response: No adverse reaction hb Medication: 16:00 VIS not applicable for this client. hb Outcome: 19:20 Discharge ordered by . aries 20:01 Patient left the ED. hb Signatures: Dispatcher [employer] EDAZ Josh Patel PA PA jmm Martinez, Amelia as Baxter, Heather, RN RN Geetha Hoang RN RN vg1
--- NOTE | 2021-12-26 19:21 | EDPHYS ---
Physician Documentation [facility] Name: Chloé Engel Age: 71 yrs Sex: Female : 1950 Arrival Date: 12/26/2021 Time: 14:20 Bed 26 Private MD: ED Physician James Lopez HPI: 12/26 15:42 This 71 yrs old Female presents to ER via Ambulatory with complaints of Rectal Bleeding.jmm 15:42 Onset: The symptoms/episode began/occurred gradually, 3 day(s) ago. Modifying factors: jmm The symptoms are alleviated by nothing, The symptoms are aggravated by nothing. This is a 71 year old female with a history of fibromyalgia, jlp, htn, sjogrens syndrome that presents to the ED with complaints of bleeding which she notived 3 days ago. patient states the blood is most likely coming from her vagina. . Historical: - Allergies: 15:27 ACETAMINOPHEN; vg1 15:27 Cephalexin; vg1 15:27 HYDROCODONE; vg1 15:27 Keflex; vg1 15:27 meloxicam; vg1 15:27 [place]val; vg1 15:27 PENICILLINS; vg1 15:27 Sulfa (Sulfonamide Antibiotics); vg1 15:27 tramadol; vg1 15:27 Vicodin; vg1 - Home Meds: 15:27 topiramate Oral [Active]; Baclofen Oral [Active]; duloxetine Oral [Active]; vg1 hydrochloroquine [Active]; Ramipril Oral [Active]; atorvastatin oral [Active]; montelukast oral [Active]; Aspirin Oral [Active]; - PMHx: 15:27 Fibromyalgia; Hyperlipidemia; Hypertension; Sjogren's Syndrome; vg1 - Immunization history:: Client reports having NOT received the Covid vaccine. - Social history:: Smoking status: Patient denies any tobacco usage or history of. ROS: 15:42 Constitutional: Negative for fever, chills, and weight loss, Cardiovascular: Negative jmm for chest pain, palpitations, and edema, Respiratory: Negative for shortness of breath, cough, wheezing, and pleuritic chest pain. 15:42 : Positive for injury or acute deformity, urinary symptoms. 15:42 All other systems are negative. Exam: 15:42 Constitutional: This is a well developed, well nourished patient who is awake, alert, jmm and in no acute distress. Head/Face: atraumatic. Eyes: EOMI, no conjunctival erythema appreciated ENT: Moist Mucus Membranes Neck: Trachea midline, Supple Chest/axilla: Normal chest wall appearance and motion. Cardiovascular: Regular rate and rhythm. No edema appreciated Respiratory: Normal respirations, no respiratory distress appreciated 15:42 Back: Normal ROM Skin: General appearance color normal MS/ Extremity: Moves all extremities, no obvious deformities appreciated, no edema noted to the lower extremities Neuro: Awake and alert Psych: Behavior is normal, Mood is normal, Patient is cooperative and pleasant 15:42 Abdomen/GI: Inspection: abdomen appears normal, Bowel sounds: normal, Palpation: soft, mild abdominal tenderness, in all quadrants, Rectal exam: is unremarkable. Vital Signs: 15:27 BP 168 / 90; Pulse 64; Resp 16; Temp 98.5; Pulse Ox 98% on R/A; Weight 61.23 kg; Height vg1 5 ft. 4 in. (162.56 cm); 15:27 Body Mass Index 23.17 (61.23 kg, 162.56 cm) vg1 MDM: 15:42 Patient medically screened. brian 19:16 Data reviewed: vital signs, nurses notes. Counseling: I had a detailed discussion with aries the patient and/or guardian regarding: the historical points, exam findings, and any diagnostic results supporting the discharge/admit diagnosis, lab results, radiology results, the need for outpatient follow up, to return to the emergency department if symptoms worsen or persist or if there are any questions or concerns that arise at home. ED course: Patient is alert and non toxic in appearance in the ED. CT is negative. Most like hemorrhagic cystitis. Advised to follow up with urology for further evaluation. Patient is otherwise given strict return precautions. Patient understood and agrees with the plan of care. . 12/26 15:48 Order name: CBC with Diff; Complete Time: 16:46 [facility] 12/26 15:48 Order name: CMP; Complete Time: 16:46 [facility] 12/26 15:48 Order name: Lipase; Complete Time: 16:46 [facility] 12/26 15:48 Order name: Type And Screen; Complete Time: 17:22 [facility] 12/26 17:49 Order name: Urine Microscopic Only; Complete Time: 18:11 12/26 17:50 Order name: Urine Dipstick-Ancillary; Complete Time: 17:54 [facility] 12/26 15:44 Order name: Gown patient; Complete Time: 17:45 [facility] 12/26 15:48 Order name: IV Saline Lock; Complete Time: 16:15 [facility] 12/26 15:48 Order name: Labs collected and sent; Complete Time: 16:15 [facility] 12/26 15:48 Order name: Urine Dipstick-Ancillary (obtain specimen); Complete Time: 17:45 [facility] 12/26 15:48 Order name: CT Abd/Pelvis - IV Contrast Only; Complete Time: 18:11 [facility] 12/26 18:10 Order name: Urine Culture EDMO Administered Medications: 19:20 Drug: Nitrofurantoin 100 mg Route: PO; hb 20:01 Follow up: Response: No adverse reaction hb Disposition Summary: 12/26/21 19:20 Discharge Ordered Location: Home [facility] Condition: Stable [facility] Diagnosis - Hemorrhagic cystitis [facility] Followup: [facility] - With: Fausto Peñaloza MD - When: 2 - 3 days - Reason: Recheck today's complaints, Continuance of care, Re-evaluation by your physician Discharge Instructions: - Discharge Summary Sheet [facility] - Hemorrhagic Cystitis [facility] Forms: - Medication Reconciliation Form [facility] - Thank You Letter [facility] - Antibiotic Education [facility] - Prescription Opioid Use [facility] Prescriptions: - Macrobid 100 mg Oral Capsule - take 1 capsule by ORAL route every 12 hours for 7 days; 14 capsule; Refills: 0, [facility] Product Selection Permitted Addendum: 12/28/2021 13:39 Co-signature as Attending Physician, James Lopez MD I agree with the assessment and c berg plan of care. Signatures: Dispatcher [employer] James Gonsalves MD MD cha Mickail, Joel, PA PA jmm Baxter, Heather, RN RN Geetha Pablo RN RN vg1
[2021-12-26 20:20] VITALS: BP 168/90; TEMP 98.5; O2SAT 98
== END 2021-12-26 20:01 | disposition home or self-care (01) ==
LOC: ER 14:15
DX: N30.91 Cystitis, unspecified with hematuria (principal); I10 Essential (primary) hypertension; Z88.0 Allergy status to penicillin; Z88.1 Allergy status to other antibiotic agents; Z88.2 Allergy status to sulfonamides; Z88.5 Allergy status to narcotic agent; Z88.6 Allergy status to analgesic agent; Z88.8 Allergy status to other drugs, medicaments and biological substances
CPT/HCPCS: 87088; 85025; 87086; 36415; 86900; 86850; 86901; 83690; 80053; 74177; 99284; Q9967; 81003; 81015

== ENCOUNTER 2022-12-24 13:45 | Emergency (ER) | payer OTHER ==
--- OUTSIDE RECORDS SUMMARY | 2022-12-24 13:50 | XMS REPORT | Continuity of Care Document ---
:1950 Author Organization [facility] t Address [address] [facility] [address] [place] [address] Care Team Providers Name Role Phone Cj Anaya Attending Clinician Unavailable Julio Winkler Attending Clinician Unavailable Parish Monsalve Attending Clinician KNOW, DOES_NOT Admitting Clinician Unavailable Payers Payer Name Policy Type Policy Number Effective Date Expiration Date S ource Problems Condition Condition Condition Status Onset Resolution Last Treating Co mments Source Name Details Category Date Date Treatment Clinician Date Amnesia Amnesia Problem Active 2022-03-13 Me moria (finding) (finding) 13:50:07 l Active [place] Problem 03/13/2022 [facility] Cervical Cervical Problem Active 2022-03-13 Memoria radiculopa radiculopa 13:50:07 l thy thy [place] (disorder) (disorder) Active Problem 03/13/2022 [facility] Headache Headache Problem Active 2022-03-13 Memoria (finding) (finding) 13:50:07 l Active [place] Problem 03/13/2022 [facility] Hyperlipid Hyperlipi Problem Active 2022-03-13 Memoria emia demia 13:50:07 l (disorder) (disorder) He rmann Active Problem 03/13/2022 [facility] Hypertensi Hypertens Problem Active 2022-03-13 Memoria ve lenin 13:50:07 l disorder, disorder, Herm sharlene systemic systemic arterial arterial (disorder) (disorder) Active Problem 03/13/2022 [facility] Lumbar Lumbar Problem Active 2022-03-[address] [facility] radiculopa radiculopa 13:50:07 l thy thy Alejandro (disorder) (disorder) Active Problem 03/13/2022 [facility] Paresthesi Paresthes Problem Active 2022-03-13 Memoria a ia 13:50:07 l (finding) (finding) Herm sharlene Active Problem 03/13/2022 [facility] Peripheral Periphera Problem Active 2022-03-13 Memoria nerve l nerve 13:50:07 l disease disease [place] (disorder) (disorder) Active Problem 03/13/2022 [facility] Allergies, Adverse Reactions, Alerts Allergy Allergy Status Severity Reaction(s) Onset Inactive Treating Comm ents Source Name Type Date Date Clinician tramadol DA Active SV N/V [facility] 03-11 [place] [facility] meloxica DA Active SV ELEVATE [facility] m BLOOD 03-11 [place] PRESSURE 00:00: [facility] FLU SHOT DA Active SV N/V [facility] 03-11 [place] 00:00: [facility] Penicill DA Active U DOES NOT [facility] ins WORK 03-11 [place] 00:00: [facility] acetamin DA Active SV N/V [facility] ophen 03-11 [place] 00[facility]00: [facility] cephalex DA Active SV N/V 0 [facility] 03-11 [place] 00:[facility]: [facility] Sulfa DA Active SV N/V 0 [facility] (Sulfona 03-11 [place] mide 00:00: Health Antibiot 00 are ics) [facility] codeine DA Active SV N/V 0 [facility] 03-11 [place] 00:00: [facility] hydrocod DA Active SV N/V 0 [facility] one 03-11 [place] 00:00: [facility] sulfa sulfa Active Memoria drugs drugs l Ale[place] codeine codeine Active Memoria l [place] penicill penicill Active Memori a in in l [place] Vicodin Vicodin Active Memoria l [place] meloxica meloxica Active Memori a m m l [place] traMADol traMADol Active Memori a l [place] HYDROcod HYDROcod Active Memori a one one thompson Allen Social History Social Habit Start Date Stop Date Quantity Comments Source Social History 2022-01-29 2022-01-29 [facility] walter 17:32:07 17:32:07 Smoking Status Start Date Stop Date Source Tobacco smoking status [facility] Medications Ordered Filled Start Stop Current Ordering Indication Dosage Frequency Signature Comments Components Source Medication Medication Date Date Medication? Clinician (SIG) Name Name topiramate 2021-02 Yes = 1 tab, Mem oria 200 mg oral 1-16 PO, BID, # l tablet 16:15: 200 tab, 2 Laila nn 00 Refill(s), Pharmacy: [facility]), 162.56, cm, 12/09/21 11:06:00 CDT, Height, 61.364, kg, 12/09/21 11:06:00 CDT, Weight topiramate 2021-02 Yes = 1 tab, Mem oria 200 mg oral 1-16 PO, BID, # l tablet 16:15: 200 tab, 2 Laila nn 00 Refill(s), Pharmacy: [facility] ([facility]), 162.56, cm, 12/09/21 11:06:00 CDT, Height, 61.364, kg, 12/09/21 11:06:00 CDT, Weight baclofen 2021-02 Yes 20 mg = 1 M emoria mg oral 1-01 tab, PO, l tablet 16:32: Bedtime, # Laila nn 00 90 tab, 1 Refill(s), Pharmacy: [facility] ([facility]), 162.56, cm, 12/09/21 11:06:00 CDT, Height, 61.364, kg, 12/09/21 11:06:00 CDT, Weight baclofen 20 2021-02 Yes 20 mg = 1 M emoria mg oral 1-01 tab, PO, l tablet 16:32: Bedtime, # Laila nn 00 90 tab, 1 Refill(s), Pharmacy: [facility] ([facility]), 162.56, cm, 12/09/21 11:06:00 CDT, Height, 61.364, kg, 12/09/21 11:06:00 CDT, Weight topiramate 2021-0 Yes 200 mg = 1 M emoria 200 mg oral 9-20 tab, PO, l tablet 16:10: BID, # 180 Laila nn 00 tab, 1 Refill(s), Pharmacy: [facility] ([facility]), 160.02, cm, 10/28/21 10:58:00 CDT, Height, 59.091, kg, 10/28/21 10:58:00 CDT, Weight topiramate 2021-0 Yes 200 mg = 1 M emoria 200 mg oral 9-20 tab, PO, l tablet 16:10: BID, # 180 Laila nn 00 tab, 1 Refill(s), Pharmacy: [facility] ([facility]), 160.02, cm, 10/28/21 10:58:00 CDT, Height, 59.091, kg, 10/28/21 10:58:00 CDT, Weight divalproex 2021-0 Yes = 2 tab, Mem oria sodium 250 3-23 PO, Daily, l mg oral 18:53: # 200 tab, Herm sharlene tablet, 00 2 extended Refill(s), [facility], 154.94, cm, 10/17/20 9:13:00 CDT, Height, 53.636, kg, 10/17/20 9:13:00 CDT, Weight divalproex 2-0 Yes = 2 tab, Mem oria sodium 250 3-23 PO, Daily, l mg oral 18:53: # 200 tab, Herm sharlene tablet, 00 2 extended Refill(s), release [facility], 154.94, cm, 10/17/20 9:13:00 CDT, Height, 53.636, kg, 10/17/20 9:13:00 CDT, Weight Depakote ER 2021-0 No 500 mg = 2 Memoria 250 mg oral 2-10 tab, PO, l tablet, 19:40: Daily, # Roland n extended 00 180 tab, 1 release Refill(s), Pharmacy: [facility], 154.94, cm, 10/17/20 9:13:00 CDT, Height, 53.636, kg, 10/17/20 9:13:00 CDT, Weight Depakote ER 2021-0 No 500 mg = 2 Memoria 250 mg oral 2-10 tab, PO, l tablet, 19:40: Daily, # Roland n extended 00 180 tab, 1 release Refill(s), Pharmacy: [facility], 154.94, cm, 10/17/20 9:13:00 CDT, Height, 53.636, kg, 10/17/20 9:13:00 CDT, Weight Nurtec ODT 2021-0 No 75 mg = 1 Me moria 75 mg oral 1-18 tab, PO, l tablet, 16:13: Q48H, # 45 Herm sharlene disintegrat 00 tab, 3 ing Refill(s), Pharmacy: [facility], 154.94, cm, 10/17/20 9:13:00 CDT, Height, 53.636, kg, 10/17/20 9:13:00 CDT, Weight Nurtec ODT 2021-0 No 75 mg = 1 Me moria 75 mg oral 1-18 tab, PO, l tablet, 16:13: Q48H, # 45 Herm sharlene disintegrat 00 tab, 3 ing Refill(s), Pharmacy: [facility], 154.94, cm, 10/17/20 9:13:00 CDT, Height, 53.636, kg, 10/17/20 9:13:00 CDT, Weight topiramate 2021-0 Yes 100 mg = 1 M emoria 100 mg oral 1-15 tab, PO, l tablet 00:53: BID, X 90 Roland n day, # 180 tab, 1 Refill(s), Pharmacy: [facility], 154.94, cm, 10/17/20 9:13:00 CDT, Height, 53.636, kg, 10/17/20 9:13:00 CDT, Weight topiramate 2021-0 Yes 100 mg = 1 M emoria 100 mg oral 1-15 tab, PO, l tablet 00:53: BID, X 90 Roland n 00 day, # 180 tab, 1 Refill(s), Pharmacy: [facility], 154.94, cm, 10/17/20 9:13:00 CDT, Height, 53.636, kg, 10/17/20 9:13:00 CDT, Weight Nurtec ODT 2021-0 No 75 mg = 1 Me moria 75 mg oral 1-15 tab, PO, l tablet, 00:51: Q48H, X 90 Herm sharlene disintegrat day, # 45 ing tab, 1 Refill(s), Pharmacy: [facility], 154.94, cm, 10/17/20 9:13:00 CDT, Height, 53.636, kg, 10/17/20 9:13:00 CDT, Weight Nurtec ODT 2021-0 No 75 mg = 1 Me moria 75 mg oral 1-15 tab, PO, l tablet, 00:51: Q48H, X 90 Herm sharlene disintegrat day, # 45 ing tab, 1 Refill(s), Pharmacy: [facility], 154.94, cm, 10/17/20 9:13:00 CDT, Height, 53.636, kg, 10/17/20 9:13:00 CDT, Weight topiramate 2020-0 Yes 200 mg = 2 M emoria 100 mg oral - tab, PO, l tablet 14:23: BID, X 90 Roland n day, # 360 tab, 3 Refill(s), Pharmacy: [facility], 154.94, cm, 10/17/20 9:13:00 CDT, Height, 53.636, kg, 10/17/20 9:13:00 CDT, Weight topiramate 2020-0 Yes 200 mg = 2 M emoria 100 mg oral -09 tab, PO, l tablet 14:23: BID, X 90 Roland n 00 day, # 360 tab, 3 Refill(s), Pharmacy: [facility], 154.94, cm, 10/17/20 9:13:00 CDT, Height, 53.636, kg, 10/17/20 9:13:00 CDT, Weight baclofen 0 Yes 20 mg = 1 M emoria mg oral 3-09 tab, PO, l tablet 15:26: TID, # 270 Laila nn 00 tab, 2 Refill(s), [facility], 162.56, cm, 04/16/20 9:08:00 DISPATCHER REFINERY, Height, 64.545, kg, 04/16/20 9:08:00 DISPATCHER REFINERY, Weight baclofen 0 Yes 20 mg = 1 M emoria mg oral 3-09 tab, PO, l tablet 15:26: TID, # 270 Laila nn 00 tab, 2 Refill(s), [facility], 162.56, cm, 04/16/20 9:08:00 DISPATCHER REFINERY, Height, 64.545, kg, 04/16/20 9:08:00 DISPATCHER REFINERY, Weight Methotrexat 2019-02 Yes 2.5 mg, 0 M emoria e 1-10 Refill(s) l 15:37: Methotrexat 2019-02 Yes 2.5 mg, 0 M emoria e 1-10 Refill(s) l 15:37: methotrexat 2019-02 Yes 0 Memori a e 2.5 mg 1-10 Refill(s) l oral tablet 15:35: Roland n methotrexat 2019-02 Yes 0 Memori a e 2.5 mg 1-10 Refill(s) l oral tablet 15:35: Roland n Folic Acid 2019-02 Yes PO, Daily, M emoria 1-10 0 l 15:29: Refill(s) folic acid 2019-02 Yes PO, Daily, M emoria 1-10 0 l 15:29: Refill(s) Folic Acid 2019-02 Yes PO, Daily, M emoria 1-10 0 l 15:29: Refill(s) folic acid 2019-02 Yes PO, Daily, M emoria 1-10 0 l 15:29: Refill(s) Alendronate 2019-02 Yes 70 mg, PO, Memoria 1-10 qWeek, 0 l 15:28: Refill(s) alendronate 2019-02 Yes 70 mg, PO, Memoria 1-10 qWeek, 0 l 15:28: Refill(s) Alendronate 2019-02 Yes 70 mg, PO, Memoria 1-10 qWeek, 0 l 15:28: Refill(s) alendronate 2019-02 Yes 70 mg, PO, Memoria 1-10 qWeek, 0 l 15:28: Refill(s) baclofen 10 2019-02 Yes 10 mg = 1 M emoria mg oral 0-21 tab, PO, l tablet 18:25: TID, # 270 Laila nn 00 tab, 1 Refill(s), [facility] 162.56, cm, 10/12/19 16:03:00 CDT, Height, 66.818, kg, 10/12/19 16:03:00 CDT, Weight baclofen 10 2019-02 Yes 10 mg = 1 M emoria mg oral 0-21 tab, PO, l tablet 18:25: TID, # 270 Laila nn 00 tab, 1 Refill(s), [facility], 162.[facility], cm, 10/12/19 16:03:00 CDT, Height, 66.818, kg, 10/12/19 16:03:00 CDT, Weight baclofen 10 2019-0 Yes 10 mg = 1 M emoria mg oral 9-03 tab, PO, l tablet 21:33: TID, # 90 Roland n 00 tab, 3 Refill(s), Pharmacy: [facility], 162.56, cm, 10/12/19 16:03:00 CDT, Height, 66.818, kg, 10/12/19 16:03:00 CDT, Weight baclofen 10 2019-0 Yes 10 mg = 1 M emoria mg oral 9-03 tab, PO, l tablet 21:33: TID, # 90 Roland n 00 tab, 3 Refill(s), Pharmacy: [facility], 162.56, cm, 10/12/19 16:03:00 CDT, Height, 66.818, kg, 10/12/19 16:03:00 CDT, Weight baclofen 10 2020-0 Yes 10 mg = 1 M emoria mg oral 5-08 tab, PO, l tablet 14:21: Bedtime, # Laila nn 00 30 tab, 3 Refill(s), Pharmacy: [place] [id number] baclofen 10 2020-0 Yes 10 mg = 1 M emoria mg oral 5-08 tab, PO, l tablet 14:21: Bedtime, # Laila nn 00 30 tab, 3 Refill(s), Pharmacy: [place] [address] Hydroxychlo 2019-0 Yes 200 mg = 1 Memoria roquine 7-10 tab, PO, l Sulfate 200 21:00: Daily, 0 He rmann MG Oral 00 Refill(s) Tablet atorvastati 2019-0 Yes 80 mg = 1 M emoria n 80 mg 7-10 tab, PO, l oral tablet 21:00: Bedtime, # [place] 00 30 tab, 0 Refill(s) hydroxychlo 2019-0 Yes 200 mg = 1 Memoria roquine 7-10 tab, PO, l sulfate 200 21:00: Daily, 0 He rmann mg oral 00 Refill(s) tablet DULoxetine 2019-0 Yes 60 mg = 1 Me moria 60 mg oral 7-10 cap, PO, l delayed 21:00: Daily, # Roland n release 00 30 cap, 0 capsule Refill(s) montelukast 2019-0 Yes 10 mg = 1 M emoria 10 mg oral 7-10 tab, PO, l tablet 21:00: Daily, 0 Alejandro 00 Refill(s) SUMAtriptan 2019-0 Yes 50 mg = 1 M emoria 50 mg oral 7-10 tab, PO, l tablet 21:00: ONCE, 0 [place] 00 Refill(s) Hydroxychlo 2019-0 Yes 200 mg = 1 Memoria roquine 7-10 tab, PO, l Sulfate 200 21:00: Daily, 0 He rmann MG Oral 00 Refill(s) Tablet atorvastati 2019-0 Yes 80 mg = 1 M emoria n 80 mg 7-10 tab, PO, l oral tablet 21:00: Bedtime, # Alejandro 00 30 tab, 0 Refill(s) hydroxychlo 2019-0 Yes 200 mg = 1 Memoria roquine 7-10 tab, PO, l sulfate 200 21:00: Daily, 0 He rmann mg oral 00 Refill(s) tablet DULoxetine Yes 60 mg = 1 Me moria 60 mg oral 7-10 cap, PO, l delayed 21:00: Daily, # Roland n release 00 30 cap, 0 capsule Refill(s) montelukast 0 Yes 10 mg = 1 M emoria 10 mg oral 7-10 tab, PO, l tablet 21:00: Daily, 0 Alejandro 00 Refill(s) SUMAtriptan Yes 50 mg = 1 M emoria 50 mg oral 7-10 tab, PO, l tablet 21:00: ONCE, 0 [place] 00 Refill(s) topiramate 0 Yes 100 mg = 1 M emoria 100 mg oral 7-10 tab, PO, l tablet 20:38: BID, 0 [place] 00 Refill(s) ramipril 10 Yes 10 mg = 1 M emoria mg oral 7-10 cap, PO, l capsule 20:38: Daily, # Roland n 00 30 cap, 0 Refill(s) carvedilol Yes 25 mg = 1 Me moria 25 mg oral 7-10 tab, PO, l tablet 20:38: BID, # 180 Laila nn 00 tab, 0 Refill(s) topiramate 0 Yes 100 mg = 1 M emoria 100 mg oral 7-10 tab, PO, l tablet 20:38: BID, 0 [place] 00 Refill(s) ramipril 10 0 Yes 10 mg = 1 M emoria mg oral 7-10 cap, PO, l capsule 20:38: Daily, # Roland n 00 30 cap, 0 Refill(s) carvedilol 0 Yes 25 mg = 1 Me moria 25 mg oral 7-10 tab, PO, l tablet 20:38: BID, # 180 Laila nn 00 tab, 0 Refill(s) Vital Signs Vital Name Observation Time Observation Value Comments Source Systolic (mm Hg) 2021-12-09 15:54:00 Wingsofiya Allen Diastolic (mm Hg) 2021-12-09 15:54:00 Mem orial Alejandro Heart Rate 2021-12-09 15:54:00 [facility] [place] Height 2021-12-09 15:54:00 5 [ft_i] [facility] [place] Weight 2021-12-09 15:54:00 [facility] [place] BMI Calculated 2021-12-09 15:54:00 Memori al [place] Systolic (mm Hg) 2021-10-28 15:52:00 Wing rial [place] Diastolic (mm Hg) 2021-10-28 15:52:00 Mem orial [place] Heart Rate 2021-10-28 15:52:00 [facility] [place] Respitory Rate 2021-10-28 15:52:00 Memori al [place] Height 2021-10-28 15:52:00 160.02 cm [facility] [place] Weight 2021-10-28 15:52:00 [facility] [place] BMI Calculated 2021-10-28 15:52:00 Memori al [place] Systolic (mm Hg) 2020-10-17 14:05:00 Wing rial Alejandro Diastolic (mm Hg) 2020-10-17 14:05:00 Mem orial [place] Heart Rate 2020-10-17 14:05:00 [facility] [place] Respitory Rate 2020-10-17 14:05:00 Memori al [place] Height 2020-10-17 14:05:00 154.94 cm [facility] [place] Weight 2020-10-17 14:05:00 [facility] [place] BMI Calculated 2020-10-17 14:05:00 Memori al [place] Systolic (mm Hg) 2020-04-16 15:08:00 Wing rial [place] Diastolic (mm Hg) 2020-04-16 15:08:00 Mem orial [place] Heart Rate 2020-04-16 15:08:00 [facility] [place] Respitory Rate 2020-04-16 15:08:00 Memori al [place] Height 2020-04-16 15:08:00 162.56 cm [facility] [place] Weight 2020-04-16 15:08:00 [facility] [place] BMI Calculated 2020-04-16 15:08:00 Memori al [place] Systolic (mm Hg) 2019-12-19 15:08:00 Wing rial Alejandro Diastolic (mm Hg) 2019-12-19 15:08:00 Mem orial [place] Heart Rate 2019-12-19 15:08:00 [facility] [place] Respitory Rate 2019-12-19 15:08:00 Memori al [place] Height 2019-12-19 15:08:00 160.02 cm [facility] [place] Weight 2019-12-19 15:08:00 [facility] [place] BMI Calculated 2019-12-19 15:08:00 Memori al [place] Systolic (mm Hg) 2019-10-12 21:03:00 Wing rial Alejandro Diastolic (mm Hg) 2019-10-12 21:03:00 Mem orial [place] Heart Rate 2019-10-12 21:03:00 [facility] [place] Respitory Rate 2019-10-12 21:03:00 Memori al [place] Temperature Oral (F) 2019-10-12 21:03:00 99.4 F [facility] [place] Height 2019-10-12 21:03:00 162.56 cm [facility] [place] Weight 2019-10-12 21:03:00 [facility] [place] BMI Calculated 2019-10-12 21:03:00 Memori al [place] Systolic (mm Hg) 2019-08-23 15:28:00 Wing rial Alejandro Diastolic (mm Hg) 2019-08-23 15:28:00 Mem orial [place] Heart Rate 2019-08-23 15:28:00 [facility] [place] Respitory Rate 2019-08-23 15:28:00 Memori al [place] Height 2019-08-23 15:28:00 162.56 cm [facility] [place] Weight 2019-08-23 15:28:00 [facility] [place] BMI Calculated 2019-08-23 15:28:00 Memori al [place] Systolic (mm Hg) 2019-06-16 14:08:00 Wing rial Alejandro Diastolic (mm Hg) 2019-06-16 14:08:00 Mem orial [place] Heart Rate 2019-06-16 14:08:00 [facility] [place] Respitory Rate 2019-06-16 14:08:00 Memori al [place] Height 2019-06-16 14:08:00 162.56 cm [facility] [place] Weight 2019-06-16 14:08:00 [facility] [place] BMI Calculated 2019-06-16 14:08:00 Memori al [place] Systolic (mm Hg) 2018-12-30 21:14:00 Wing rial Alejandro Diastolic (mm Hg) 2018-12-30 21:14:00 Mem orial [place]andro Heart Rate 2018-12-30 21:14:00 [facility] [place] Respitory Rate 2018-12-30 21:14:00 Memori al [place] Height 2018-12-30 21:14:00 162.56 cm [facility] [place] Weight 2018-12-30 21:14:00 [facility] [place] BMI Calculated 2018-12-30 21:14:00 Memori al [place]jandro Systolic (mm Hg) 2018-10-13 14:11:00 Wing rial [place] Diastolic (mm Hg) 2018-10-13 14:11:00 Mem orial [place]jandro Heart Rate 2018-10-13 14:11:00 [facility] [place] Respitory Rate 2018-10-13 14:11:00 Memori al [place] Height 2018-10-13 14:11:00 162.56 cm [facility] [place] BMI Calculated 2018-08-17 20:23:00 Memori al [place] Heart Rate 2018-08-17 20:23:00 [facility] [place] Respitory Rate 2018-08-17 20:23:00 Memori al [place] Systolic (mm Hg) 2018-08-17 20:23:00 Wing rial [place] Diastolic (mm Hg) 2018-08-17 20:23:00 Mem orial [place] Height 2018-08-17 20:23:00 165.1 cm [facility] [place] Weight 2018-08-17 20:23:00 [facility] Procedures This patient has no known procedures. Encounters Start End Encounter Admission Attending Care Care Encounter Source Date/Time Date/Time Type Type Clinicians Facility Department ID 2021-12-29 Outpatient NAGI Anaya [facility] [id number] Common 15:26:03 Cj [id number] [facility] 2022-03-12 2022-03-12 Outpatient OSCAR Winkler [facility] [id number] [facility] 09:26:00 09:26:00 Julio Melendez [facility] 2022-03-09 2022-03-11 Outside JUAN AIE BESSIE [id number] Memoria 15:16:08 05:59:59 Medical Neurology 00 l Records Hernan Allen 2022-03-09 2022 Outpatient JUAN AMISCHER KRYSTAL [id number] 09:16:08 23:59:59 00 2022-02-05 2022-02-05 Ambulatory MHIE MNA [id number] Memoria 15:45:00 15:45:00 Pre-Reg Neurology 19 l Hernan Allen 2022-02-05 2022-02-05 Ambulatory MHIE MNA [id number] Memoria 15:45:00 15:45:00 Pre-Reg Neurology 19 l Hernan Allen 2022-02-05 2022-02-05 [id number] 09:45:00 09:45:00 Parish 19 aRji 2022-01-22 2022-01-22 Outpatient MHIE MHIE [id number] Memoria 13:15:00 13:15:00 19 thompson Allen 2021-12-09 2021-12-10 Outpatient nullFlavo MNA [id number] Memoria 15:45:00 04:59:59 r Neurology 18 thompson Allen 2021-12-09 2021-12-10 Outpatient nullFlavo MNA [id number] Memoria 15:45:00 04:59:59 r Neurology 18 thompson Allen 2021-12-09 2021-12-09 [id number] 10:45:00 23:59:59 Parish 18 Raji 2021-12-09 2021-12-09 Outpatient MHIE MHIE [id number] Memoria 10:45:00 10:45:00 18 thompson Allen 2021-10-28 2021-10-29 Outpatient nullFlavo MNA [id number] Memoria 15:45:00 04:59:59 r Neurology 17 thompson Allen 2021-10-28 2021-10-29 Outpatient nullFlavo MNA [id number] Memoria 15:45:00 04:59:59 r Neurology 17 thompson Allen 2021-10-28 2021-10-28 [facility] [id number] 10:45:00 23:59:59 Parish 17 Raji 2021-10-28 2021-10-28 Outpatient MHIE MHIE [id number] Memoria 10:45:00 10:45:00 17 thompson Allen 2021-05-15 2021-05-15 Ambulatory nullFlavo MNA [id number] Memoria 14:30:00 14:30:00 Pre-Reg r Neurology 16 l Hernan Allen 2021-05-15 2021-05-15 Ambulatory nullFlavo MNA [id number] Memoria 14:30:00 14:30:00 Pre-Reg r Neurology 16 l Hernan Allen 2021-05-15 2021-05-15 Outpatient MHIE IE [id number] Memoria 09:30:00 09:30:00 16 thompson Allen 2021-05-15 2021-05-15 [facility]el [facility] [id number] 09:30:00 09:30:00 Parish 16 Raji 2020-10-17 2020-10-18 Outpatient nullFlavo MNA [id number] Memoria 14:00:00 04:59:59 r Neurology 15 l Hernan Allen 2020-10-17 2020-10-18 Outpatient nullFlavo MNA [id number] Memoria 14:00:00 04:59:59 r Neurology 15 l Hernan Allen 2020-10-17 2020-10-17 Outpatient JUAN A MonsalveGASCHER MISCHER [id number] 09:00:00 23:59:59 Parish 15 Raji 2020-10-17 2020-10-17 Outpatient MHIE IE [id number] Memoria 09:00:00 09:00:00 15 thompson Allen 2020-04-16 2020-04-17 Outpatient nullFlavo MNA [id number] Memoria 15:00:00 05:59:59 r Neurology 14 l Hernan Allen 2020-04-16 2020-04-17 Outpatient nullFlavo MNA [id number] Memoria 15:00:00 05:59:59 r Neurology 14 thompson Allen 2020-04-16 2020-04-16 Outpatient JUAN A MonsalveMISCHER MHMISCHER [id number] 09:00:00 23:59:59 Parish 14 Raji 2020-04-16 2020-04-16 Outpatient MHIE IE [id number] Memoria 09:00:00 09:00:00 14 thompson Allen 2019-12-19 2019-12-20 Outpatient nullFlavo MNA [id number] Memoria 15:00:00 05:59:59 r Neurology 09 l [place] Alejandro 2019-12-19 2019-12-20 Outpatient nullFlavo MNA [id number] Memoria 15:00:00 05:59:59 r Neurology 09 l [place] Alejandro 2019-12-19 2019-12-19 Outpatient JUAN A MonsalveGASCHER MISCHER [id number] 09:00:00 23:59:59 Parish 09 Raji 2019-12-19 2019-12-19 Ambulatory nullFlavo MNA [id number] Memoria 15:00:00 15:00:00 Pre-Reg r Neurology 08 l [place] Alejandro 2019-12-19 2019-12-19 Ambulatory nullFlavo MNA [id number] Memoria 15:00:00 15:00:00 Pre-Reg r Neurology 08 l [place] Alejandro 2019-12-19 2019-12-19 Outpatient MHIE MHIE [id number] Memoria 09:00:00 09:00:00 09 l Alejandro 2019-12-19 2019-12-19 Outpatient MHIE MHIE [id number] Memoria 09:00:00 09:00:00 08 l [place] 2019-12-19 2019-12-19 Outpatient [id number] 09:00:00 09:00:00 [place] 08 [place] 2019-10-17 2019-10-18 Outpatient nullFlavo MNA [id number] Memoria 18:00:00 04:59:59 r Neurology 13 l [place] 2019-10-17 2019-10-18 Outpatient nullFlavo MNA [id number] Memoria 18:00:00 04:59:59 r Neurology 13 l [place] 2019-10-17 2019-10-17 Outpatient JUAN MonsalveSCHER MISCHER [id number] 13:00:00 23:59:59 [place] 13 [place] 2019-10-17 2019-10-17 Outpatient MHIE MHIE [id number] Memoria 13:00:00 13:00:00 13 l [place] 2019-10-12 2019-10-13 Outpatient nullFlavo MNA [id number] Memoria 21:00:00 04:59:59 r Neurology 12 l [place] 2019-10-12 2019-10-13 Outpatient nullFlavo MNA [id number] Memoria 21:00:00 04:59:59 r Neurology 12 l [place] 2019-10-12 2019-10-12 Outpatient Gricel, MISCHER MISCHER [id number] 16:00:00 23:59:59 [place] 12 [place] 2019-10-12 2019-10-12 Outpatient MHIE IE [id number] Memoria 16:00:00 16:00:00 12 l [place] 2019-10-05 2019-10-05 Ambulatory nullFlavo MNA [id number] Memoria 14:15:00 14:15:00 Pre-Reg r Neurology 11 l [place] Alejandro 2019-10-05 2019-10-05 Ambulatory nullFlavo MNA [id number] Memoria 14:15:00 14:15:00 Pre-Reg r Neurology 11 l [place] Ale[place] 2019-10-05 2019-10-05 Outpatient MHIE IE [id number] Memoria 09:15:00 09:15:00 11 l [place] 2019-10-05 2019-10-05 [facility] [id number] 09:15:00 09:15:00 [place] 11 [place] 2019-08-23 2019-08-24 Outpatient nullFlavo MNA [id number] Memoria 15:30:00 04:59:59 r Neurology 10 l [place] 2019-08-23 2019-08-24 Outpatient nullFlavo MNA [id number] Memoria 15:30:00 04:59:59 r Neurology 10 l [place] Ale[place] 2019-08-23 2019-08-23 Outpatient [id number] 10:30:00 23:59:59 Parish 10 Raji 2019-08-23 2019-08-23 Outpatient MHIE MHIE [id number] Memoria 10:30:00 10:30:00 10 thompson Cleghorn 2019-06-16 2019-06-17 Outpatient nullFlavo MNA [id number] Memoria 14:00:00 04:59:59 r Neurology 07 l [place] Cleghorn 2019-06-16 2019-06-17 Outpatient nullFlavo MNA [id number] Memoria 14:00:00 04:59:59 r Neurology 07 l Hernan Allen 2019-06-16 2019-06-16 [facility] [id number] 09:00:00 23:59:59 Parish 07 Raji 2019-06-16 2019-06-16 Outpatient MHIE MHIE [id number] Memoria 09:00:00 09:00:00 07 thompson Cleghorn 2018-12-30 2018-12-31 Outpatient nullFlavo MNA [id number] Memoria 21:15:00 05:59:59 r Neurology 06 l Hernan Allen 2018-12-30 2018-12-31 Outpatient nullFlavo MNA [id number] Memoria 21:15:00 05:59:59 r Neurology 06 thompson Allen 2018-12-30 2018-12-30 [facility] [id number] 15:15:00 23:59:59 Parish Alba Alegria 2018-12-30 2018-12-30 Outpatient MHIE MHIE [id number] Memoria 15:15:00 15:15:00 06 thompson Allen 2018-12-01 2018-12-01 Ambulatory nullFlavo MNA [id number] Memoria 14:15:00 14:15:00 Pre-Reg r Neurology 03 thompson [place] Cleghorn 2018-12-01 2018-12-01 Ambulatory nullFlavo MNA [id number] Memoria 14:15:00 14:15:00 Pre-Reg r Neurology 03 thompson [place] Alejandro 2018-12-01 2018-12-01 Outpatient MHIE MHIE [id number] Memoria 09:15:00 09:15:00 Rosalio mackay Cleghorn 2018-12-01 2018-12-01 [facility] [id number] 09:15:00 09:15:00 Parish Rosalio Alegria 2018-11-23 2018-11-23 Ambulatory nullFlavo MNA [id number] Memoria 18:45:00 18:45:00 Pre-Reg r Neurology 05 thompson [place] Alejandro 2018-11-23 2018-11-23 Ambulatory nullFlavo MNA [id number] Memoria 18:45:00 18:45:00 Pre-Reg r Neurology 05 thompson Allen 2018-11-23 2018-11-23 Outpatient MHIE IE [id number] Memoria 13:45:00 13:45:00 05 thompson Cleghorn 2018-11-23 2018-11-23 [facility] [id number] 13:45:00 13:45:00 Parish 05 Arji 2018-11-15 2018-11-15 Ambulatory nullFlavo MNA [id number] Memoria 19:45:00 19:45:00 Pre-Reg r Neurology 04 thompson Allen 2018-11-15 2018-11-15 Ambulatory nullFlavo MNA [id number] Memoria 19:45:00 19:45:00 Pre-Reg r Neurology 04 thompson Allen 2018-11-15 2018-11-15 Outpatient MHIE MHIE [id number] Memoria 14:45:00 14:45:00 04 thompson Alejandro 2018-11-15 2018-11-15 [facility] [id number] 14:45:00 14:45:00 Parish Nubia Alegria 2018-10-13 2018-10-14 Outpatient nullFlavo MNA [id number] Memoria 14:15:00 04:59:59 r Neurology 02 thompson Becerra Alejandro 2018-10-13 2018-10-14 Outpatient nullFlavo MNA [id number] Memoria 14:15:00 04:59:59 r Neurology 02 thompson Allen 2018-10-13 2018-10-13 [facility] [id number] 09:15:00 23:59:59 Parish Raciel Raji 2018-10-13 2018-10-13 Outpatient MHIE MHIE [id number] Memoria 09:15:00 09:15:00 02 thompson Allen 2018-09-13 2018-09-14 Outpatient nullFlavo MNA [id number] Memoria 13:15:00 04:59:59 r Neurology 01 thompson Allen 2018-09-13 2018-09-14 Outpatient nullFlavo MNA [id number] Memoria 13:15:00 04:59:59 r Neurology 01 thompson Allen 2018-09-13 2018-09-13 [id number] 08:15:00 23:59:59 Parish 01 Raji 2018-09-13 2018-09-13 Outpatient MHIE MHIE [id number] Memoria 08:15:00 08:15:00 01 l Alejandro 2018-08-17 2018-08-18 Outpatient nullFlavo MNA [id number] Memoria 20:30:00 04:59:59 r Neurology 00 l [place] Allen 2018-08-17 2018-08-18 Outpatient nullFlavo MNA [id number] Memoria 20:30:00 04:59:59 r Neurology 00 l Hernan Allen 2018-08-17 2018-08-17 [id number] 15:30:00 23:59:59 Parish Raji Results Test Description Test Time Test Comments Results Result Comments Source SURGICAL 2022-03-16 13:47:00 Test Item Value Reference Range Interpretation Comme nts SURGICAL RUN DATE: (test 03/16/22 [facility] - LAB PAGE 1 RUN TIME: 1347 Specimen Inquiry RUN USER: INTERFACE code = PATIENT: ) JUAN CARLOS SERRANO LOC: [facility] U #: [id number] AGE/SX: 72/F ROOM: RE03/12/22LUIZ DR: Balta Winkler MD : 50 BED: DIS: STATUS: DEP [facility] TLOC: SPEC #: [id number] RECD: 03/13/221351 STATUS: LIANE CHASE #: [id number] SHANEL: 03/12/221502 SUBM DR: Julio Winkler MD ENTER ED: 03/13/22 SP TYPE: SURGICAL OTHR DR: No Primary or Family Physician Undefined ProviderORDERED: 1636, ANATOMIC SPEC HISTOLOGY: TISSUE ID BLK PCS OTIS LEV / PROCEDURE DISPOSITION ____ ___ ___ ___ ___ URETHRA NOS A 1 1 TISSUES: A. URETHRA NOS - Ur etheral Prolapse FINAL DIAGNOSIS URETHRA, PROLAPSED MUCOSA, EXCISION: - Urethral caruncle. - Negativ e for malignancy. GROSS DESCRIPTION Received in formalin in a container and labeled "Toro, Juan Carlos" and also "urethralprolapse" is a 1.5 x 1.1 x 1 cm polypoid portion of white-victor mucosal tissue. The specimen is serially sectioned and totally submitted in cassette A. AW/ml Technical component performed at [facility] on [facility] [facility], [facility], [address] Immunohistochemistry: This t est was developed and its performancecharacteristics determined by this laboratory. It has not been approved nordoes it need approval by the [place] FDA. Appropriate positive and negative controlsare reviewe d and judged to be acceptable. This laboratory is certified underthe Clinical Laboratory Improvem ent Amendments (CLIA-88) as qualified toperform high complexity clinical laboratory testing. MICROSCO PIC DESCRIPTION Unless gross only, the diagnosis is based upon microscopic examination. CLINICAL INFORM ATION Prolapse Urethral Mucosa CONTINUED ON NEXT PAGE RUN DATE: 03/16/22 [facility] - LAB PAGE 2 RUN TIME: 1346 Specimen Inquiry RUN USER: INTERFACE SPEC #: [id number] PATIENT: TOROJUAN CARLOS MARCELLA #[id number] (Continued) Signed SIGNATURE ON Lucio Brown Kareem 03/16/22 1347 END OF REPORT CHEM [id number] 19:47:00 Test Item Value Reference Range Interpretation Comments Globulin (test code = Globulin) 2.6 1.9-3.7 [facility]2020-07-16 19:47:00 Test Item Value Reference Range Interpretation Comments A/G Ratio (test code = A/G Ratio) 1.5 1.0-2.5 [facility] [id number] 19:47:00 Test Item Value Reference Range Interpretation Comments Bili Total (test code = Bili Total) 0.5 0.2-1.2 [facility] [id number] 19:47:00 Test Item Value Reference Range Interpretation Comments Alk Phos (test code = Alk Phos) 100 37-153 [facility]2020-07-16 19:47:00 Test Item Value Reference Range Interpretation Comments ASPARTATE TRANSAMINASE (test code = 21 10-35 ASPARTATE TRANSAMINASE) [facility] [id number] 19:47:00 Test Item Value Reference Range Interpretation Comments ALANINE AMINOTRANSFERASE (test code = 16 6-29 ALANINE AMINOTRANSFERASE) [facility] HospitalDercizfAXUIGINVBU6966-82-41 19:47:00 Test Item Value Reference Range Interpretation Comments WBC X 10x3 (test code = WBC X 10x3) 6.1 3.8-10.8 [facility] HospitalXsxiiqdLVGUPEXCXV7292-79-28 19:47:00 Test Item Value Reference Range Interpretation Comments RBC X 10x6 (test code = RBC X 10x6) 4.05 3.80-5.10 [facility] HospitalMczyuqaQGLCRMSHPD9169-66-53 19:47:00 Test Item Value Reference Range Interpretation Comments Hgb (test code = Hgb) 12.2 11.7-15.5 [facility] HospitalDjhdhbgJSSWBVWYXW2989-30-58 19:47:00 Test Item Value Reference Range Interpretation Comments Hct (test code = Hct) 37.6 35.0-45.0 [place] [address]-07-16 19:47:00 Test Item Value Reference Range Interpretation Comments MCV (test code = MCV) 92.8 80.0-100.0 [facility] HospitalLthbauiNNKJSEWGJF6686-69-26 19:47:00 Test Item Value Reference Range Interpretation Comments MCH (test code = MCH) 30.1 pg 27.0-33.0 [facility] HospitalEucboynVCBSINSWRG8262-78-77 19:47:00 Test Item Value Reference Range Interpretation Comments MCHC (test code = MCHC) 32.4 32.0-36.0 [facility] HospitalCinwohmNZLPREPZPG8287-29-80 19:47:00 Test Item Value Reference Range Interpretation Comments RDW (test code = RDW) 11.8 11.0-15.0 [facility] HospitalFqogijiJOVYWTSVOV7274-28-26 19:47:00 Test Item Value Reference Range Interpretation Comments Platelet (test code = Platelet) 144 140-400 [facility] HospitalGmzyuirZIYSNLRZME0058-52-13 19:47:00 Test Item Value Reference Range Interpretation Comments MPV (test code = MPV) 11.4 7.5-12.5 [facility] HospitalZxgjfbjXPXCEWCXPT0645-47-76 19:47:00 Test Item Value Reference Range Interpretation Comments Neutrophils # (test code = Neutrophils 3148 4122-0059 #) [facility] HospitalYijxsqeAPAUHJTEWU0484-85-39 19:47:00 Test Item Value Reference Range Interpretation Comments Lymphocytes # (test code = Lymphocytes 2312 850-3900 #) [facility] HospitalWqsspquDUFLHUMTRA6195-95-10 19:47:00 Test Item Value Reference Range Interpretation Comments Monocytes # (test code = Monocytes #) 451 200-950 [facility] HospitalLcqbndgVUYRLSIZMT2977-55-02 19:47:00 Test Item Value Reference Range Interpretation Comments Eosinophils # (test code = Eosinophils 159 15-500 #) [facility] HospitalKcthpclEXKWAQFANL3191-44-55 19:47:00 Test Item Value Reference Range Interpretation Comments Basophils # (test code = Basophils #) 31 <=200 [facility] HospitalKpjwuabTMCGGZYNBH3305-97-09 19:47:00 Test Item Value Reference Range Interpretation Comments Segs (test code = Segs) 51.6 [facility] HospitalUfwwsvsETPSGQDCLX1891-08-52 19:47:00 Test Item Value Reference Range Interpretation Comments Lymphocytes (test code = Lymphocytes) 37.9 [facility] HospitalXdtykzlBBEXNDAZMM4815-08-02 19:47:00 Test Item Value Reference Range Interpretation Comments Monocytes (test code = Monocytes) 7.4 [facility] HospitalIchsopsUPBMIEGDRR6973-20-09 19:47:00 Test Item Value Reference Range Interpretation Comments Eosinophils (test code = Eosinophils) 2.6 [facility] HospitalTevzdqiXFWKHRTDLS1367-20-65 19:47:00 Test Item Value Reference Range Interpretation Comments Basophils (test code = Basophils) 0.5 [facility] HospitalHfitbfkCJRLQGDISM4302-66-10 19:47:00 Test Item Value Reference Range Interpretation Comments Sed Rate (test code = Sed Rate) 9 [facility] HospitalUshodjsYBCMCJDGJN0681-91-78 19:47:00 Test Item Value Reference Range Interpretation Comments C-REACTIVE PROTEIN (test code = 0.6 C-REACTIVE PROTEIN) [facility] [id number] 19:47:00 Test Item Value Reference Range Interpretation Comments Vitamin B12 Lvl (test code = Vitamin 685 244-7144 B12 Lvl) [facility]2020-07-16 19:47:00 Test Item Value Reference Range Interpretation Comments Glucose Lvl (test code = Glucose Lvl) 98 65-99 [facility]2020-07-16 19:47:00 Test Item Value Reference Range Interpretation Comments BUN (test code = BUN) 15 7-25 [facility]2020-07-16 19:47:00 Test Item Value Reference Range Interpretation Comments Creatinine Lvl (test code = Creatinine 0.67 0.50-0.99 Lvl) [facility]2020-07-16 19:47:00 Test Item Value Reference Range Interpretation Comments eGFR NON-AFR. PALESTINIAN (test code = 90 eGFR NON-AFR. PALESTINIAN) [facility]2020-07-16 19:47:00 Test Item Value Reference Range Interpretation Comments eGFR (test code = eGFR 104 ) [facility]2020-07-16 19:47:00 Test Item Value Reference Range Interpretation Comments B/C Ratio (test code = B/C NOT APPLICABLE 6-22 Ratio) [facility]2020-07-16 19:47:00 Test Item Value Reference Range Interpretation Comments Sodium Lvl (test code = Sodium Lvl) 143 135-146 [facility]2020-07-16 19:47:00 Test Item Value Reference Range Interpretation Comments Potassium Lvl (test code = Potassium 4.0 3.5-5.3 Lvl) [facility]2020-07-16 19:47:00 Test Item Value Reference Range Interpretation Comments Chloride Lvl (test code = Chloride Lvl) 110 98-110 [facility]2020-07-16 19:47:00 Test Item Value Reference Range Interpretation Comments CO2 (test code = CO2) 26 20-32 [facility]2020-07-16 19:47:00 Test Item Value Reference Range Interpretation Comments Calcium Lvl (test code = Calcium Lvl) 9.1 8.6-10.4 [facility]2020-07-16 19:47:00 Test Item Value Reference Range Interpretation Comments Total Protein (test code = Total 6.4 6.1-8.1 Protein) [facility]2020-07-16 19:47:00 Test Item Value Reference Range Interpretation Comments Albumin Lvl (test code = Albumin Lvl) 3.8 3.6-5.1 [facility] HospitalVshlpfjZSIBOABKNO4019-68-17 19:47:00 Test Item Value Reference Range Interpretation Comments Basophils # (test code 31 See_Comment [Aut omated message] The = Basophils #) system which generated this result tra nsmitted reference range : <=200. The reference r christy was not used to int erpret this result as normal/abnormal . [facility] HospitalEpaiogiHYMAIUVILS2482-80-55 19:47:00 Test Item Value Reference Range Interpretation Comments Segs (test code = Segs) 51.6 [facility] HospitalVlmgrzrHCUREASGLG5327-09-23 19:47:00 Test Item Value Reference Range Interpretation Comments Lymphocytes (test code = Lymphocytes) 37.9 [facility] HospitalKwxtybpKPHFGQNDLO1613-18-36 19:47:00 Test Item Value Reference Range Interpretation Comments Monocytes (test code = Monocytes) 7.4 [facility] HospitalJzquywnIGLUBKMGWD2115-87-18 19:47:00 Test Item Value Reference Range Interpretation Comments Eosinophils (test code = Eosinophils) 2.6 [facility] HospitalDaotsydXLHVHKIFXN2214-60-81 19:47:00 Test Item Value Reference Range Interpretation Comments Basophils (test code = Basophils) 0.5 [facility] HospitalJziotwuGZAIYYGUMZ0670-59-90 19:47:00 Test Item Value Reference Range Interpretation Comments Sed Rate (test code = Sed Rate) 9 [facility] HospitalEzsegdkJRCRMCCKJS5506-02-28 19:47:00 Test Item Value Reference Range Interpretation Comments C-REACTIVE PROTEIN (test code = 0.6 C-REACTIVE PROTEIN) [facility]2020-07-16 19:47:00 Test Item Value Reference Range Interpretation Comments Vitamin B12 Lvl (test code = Vitamin 839 839-2864 B12 Lvl) [facility]2020-07-16 19:47:00 Test Item Value Reference Range Interpretation Comments Glucose Lvl (test code = Glucose Lvl) 98 65-99 [facility]2020-07-16 19:47:00 Test Item Value Reference Range Interpretation Comments BUN (test code = BUN) 15 7-25 [facility]2020-07-16 19:47:00 Test Item Value Reference Range Interpretation Comments Creatinine Lvl (test code = Creatinine 0.67 0.50-0.99 Lvl) [facility]2020-07-16 19:47:00 Test Item Value Reference Range Interpretation Comments eGFR NON-AFR. PALESTINIAN (test code = 90 eGFR NON-AFR. PALESTINIAN) [facility]2020-07-16 19:47:00 Test Item Value Reference Range Interpretation Comments eGFR (test code = eGFR 104 ) [facility]2020-07-16 19:47:00 Test Item Value Reference Range Interpretation Comments B/C Ratio (test code = B/C NOT APPLICABLE 6-22 Ratio) [facility]HatchATRI[facility] HUNTERSVILLEZVJOD4067-14-06 19:47:00 Test Item Value Reference Range Interpretation Comments Sodium Lvl (test code = Sodium Lvl) 143 135-146 [facility]2020-07-16 19:47:00 Test Item Value Reference Range Interpretation Comments Potassium Lvl (test code = Potassium 4.0 3.5-5.3 Lvl) [facility]HatchAT[facility] HUNTERSVILLEVLGON8375-70-79 19:47:00 Test Item Value Reference Range Interpretation Comments Chloride Lvl (test code = Chloride Lvl) 110 98-110 [facility]2020-07-16 19:47:00 Test Item Value Reference Range Interpretation Comments CO2 (test code = CO2) 26 20-32 [facility]2020-07-16 19:47:00 Test Item Value Reference Range Interpretation Comments Calcium Lvl (test code = Calcium Lvl) 9.1 8.6-10.4 [facility]2020-07-16 19:47:00 Test Item Value Reference Range Interpretation Comments Total Protein (test code = Total 6.4 6.1-8.1 Protein) [facility]2020-07-16 19:47:00 Test Item Value Reference Range Interpretation Comments Albumin Lvl (test code = Albumin Lvl) 3.8 3.6-5.1 [facility]2020-07-16 19:47:00 Test Item Value Reference Range Interpretation Comments Globulin (test code = Globulin) 2.6 1.9-3.7 [place] 630950-07-16 19:47:00 Test Item Value Reference Range Interpretation Comments A/G Ratio (test code = A/G Ratio) 1.5 1.0-2.5 [facility]2020-07-16 19:47:00 Test Item Value Reference Range Interpretation Comments Bili Total (test code = Bili Total) 0.5 0.2-1.2 [place] 630950-07-16 19:47:00 Test Item Value Reference Range Interpretation Comments Alk Phos (test code = Alk Phos) 100 37-153 [facility]2020-07-16 19:47:00 Test Item Value Reference Range Interpretation Comments ASPARTATE TRANSAMINASE (test code = 21 10-35 ASPARTATE TRANSAMINASE) [facility]2020-07-16 19:47:00 Test Item Value Reference Range Interpretation Comments ALANINE AMINOTRANSFERASE (test code = 16 6-29 ALANINE AMINOTRANSFERASE) [facility] HospitalVxuyrfqZXMHKZIXHO0537-03-50 19:47:00 Test Item Value Reference Range Interpretation Comments WBC X 10x3 (test code = WBC X 10x3) 6.1 3.8-10.8 [facility] HospitalFpsxijeTLMMPJHLKZ9733-39-54 19:47:00 Test Item Value Reference Range Interpretation Comments RBC X 10x6 (test code = RBC X 10x6) 4.05 3.80-5.10 [place] [address]-07-16 19:47:00 Test Item Value Reference Range Interpretation Comments Hgb (test code = Hgb) 12.2 11.7-15.5 [place] [address]-07-16 19:47:00 Test Item Value Reference Range Interpretation Comments Hct (test code = Hct) 37.6 35.0-45.0 [place] [address]-07-16 19:47:00 Test Item Value Reference Range Interpretation Comments MCV (test code = MCV) 92.8 80.0-100.0 [facility] HospitalDvuynjyMGBZYNDPEK2395-05-30 19:47:00 Test Item Value Reference Range Interpretation Comments MCH (test code = MCH) 30.1 pg 27.0-33.0 [facility] HospitalNpdkufeRJXZTVISCE3407-36-76 19:47:00 Test Item Value Reference Range Interpretation Comments MCHC (test code = MCHC) 32.4 32.0-36.0 [facility] HospitalLmwlxdlPDQPIHXHVB4613-51-35 19:47:00 Test Item Value Reference Range Interpretation Comments RDW (test code = RDW) 11.8 11.0-15.0 [facility] HospitalXaxwhfoDGKJDOXEZB9531-43-16 19:47:00 Test Item Value Reference Range Interpretation Comments Platelet (test code = Platelet) 144 140-400 [facility] HospitalMquioocQRNMDTJWBA5882-21-13 19:47:00 Test Item Value Reference Range Interpretation Comments MPV (test code = MPV) 11.4 7.5-12.5 [facility] HospitalNvfrvrtTYVCQUCUYM7790-34-10 19:47:00 Test Item Value Reference Range Interpretation Comments Neutrophils # (test code = Neutrophils 3148 3252-7100 #) [facility] HospitalGyvrzccFYBOHCWSUI4411-62-53 19:47:00 Test Item Value Reference Range Interpretation Comments Lymphocytes # (test code = Lymphocytes 2312 850-3900 #) [facility] HospitalGvyjzzrQHYXPMFNSL5337-89-79 19:47:00 Test Item Value Reference Range Interpretation Comments Monocytes # (test code = Monocytes #) 451 200-950 [facility] HospitalVpywhdaUQCFWRXEAM6205-19-11 19:47:00 Test Item Value Reference Range Interpretation Comments Eosinophils # (test code = Eosinophils 159 15-500 #) [facility]
--- NOTE | 2022-12-24 14:30 | RAD REPORT ---
EXAM DESCRIPTION: CT - Head Brain Wo Cont - 12/24/2022 2:13 pm CLINICAL HISTORY: CONFUSED COMPARISON: Head Brain Wo Cont dated 09/06/2019 TECHNIQUE: Noncontrast head CT images were obtained without IV contrast. Multiplanar reformats were generated and reviewed. All CT scans are performed using dose optimization technique as appropriate and may include automated exposure control or mA/KV adjustment according to patient size. FINDINGS: Degradation of the signal to noise ratio somewhat limits evaluation. No intracranial hemorrhage, mass, or edema. Midline structures are unremarkable. Normal ventricular caliber for age. Boswell-white matter differentiation is preserved, without evidence of acute infarct. No abnormal extra- axial fluid collections. Mastoid air cells and visualized portions of the paranasal sinuses are clear. No acute bony findings. Right supraorbital scalp swelling and small hematoma. IMPRESSION: No evidence of an acute intracranial process. Degradation of the signal to noise ratio s omewhat limits evaluation. Right supraorbital scalp swelling and small hematoma.
--- NOTE | 2022-12-24 14:34 | RAD REPORT ---
EXAM DESCRIPTION: RADChest Single View12/24/2022 2:22 pm CLINICAL HISTORY: weakness COMPARISON: Chest Pa And Lat (2 Views) dated 11/11/2020; Chest Pa And Lat (2 Views) dated 07/02/2020; Chest Single View dated 09/06/2019; Chest Pa And Lat (2 Views) dated 10/07/2017 TECHNIQUE: Portable AP view of the chest. FINDINGS: The lungs are clear. Left basilar atelectasis, stable. No pneumothorax or effusion. The c ardiomediastinal contours are unremarkable. IMPRESSION: No acute cardiopulmonary process.
[2022-12-24 14:50] LABS: Absolute Lymphocytes (CBC) 1.9 K/uL (0.7-4.9); Hematocrit 39.7 % (36.0-45.0); Lymphocytes % 36.5 % (15.3-44.8); MCV 94.7 fL (80-100); MPV 8.6 fL (7.6-11.3); Platelets 155 thou/uL (152-406); RBC Red Blood Cell Count 4.19 M/uL (3.86-4.86)
[2022-12-24 14:58] LABS: ALT/SGPT 26 U/L (13-56); AST/SGOT 20 U/L (15-37); Albumin 3.5 g/dL (3.4-5.0); Alkaline Phosphatase 80 U/L (45-117); BUN Blood Urea Nitrogen 15 mg/dL (7-18); Bicarbonate 26 mEq/L (21-32); Bilirubin Direct < 0.1 mg/dL (0-0.2); Bilirubin Indirect, Calculated ND mg/dL (0.2-0.8); Bilirubin Total 0.4 mg/dL (0.2-1.0); Glomerular Filtration Rate 92 ml/min (=/>90); Glucose Level 95 mg/dL (74-106); Magnesium 2.1 mg/dL (1.6-2.4); NT PRO-BNP 357 pg/mL (<125); Potassium 3.6 mEq/L (3.5-5.1); Protein, Total 7.2 g/dL (6.4-8.2); Sodium Level 142 mEq/L (136-145); Troponin High Sensitivity 8.7 pg/mL (<58.9)
--- NOTE | 2022-12-24 16:49 | EDPHYS ---
Physician Documentation [facility] Name: Chloé Engel Age: 72 yrs Sex: Female : 1950 Arrival Date: 12/24/2022 Time: 13:45 Bed 16 Private MD: ED Physician Javier Estrada HPI: 12/24 16:57 This 72 yrs old Female presents to ER via Ambulatory with complaints of High Blood kdr Pressure. 16:57 The patient noted last night that her blood pressure was elevated. She became concerned kdr and flustered but did not take her blood pressure medicine last night or this morning when she would normally take them. Patient's not had symptoms like this before. The patient is otherwise stable and nontoxic appearing. Patient is states that she takes ramipril in the morning her blood pressure but again did not take it this morning. Currently she reports very vague symptoms including very mild headache and stating that "I feel weird". Her blood pressure at home was noted to be over 200 (208/106) on arrival in the triage area, her blood pressure was 180/98. Given the patient is nontoxic-appearing. Onset: The symptoms/episode began/occurred last night. Severity of symptoms: At their worst the symptoms were mild just prior to arrival, in the emergency department the symptoms have improved. The patient has not experienced similar symptoms in the past. The patient has been recently seen by a physician: the patient's primary care provider, 2 week(s) ago. Historical: - Allergies: 13:54 ACETAMINOPHEN; ph 13:54 Cephalexin; ph 13:54 HYDROCODONE; ph 13:54 Keflex; ph 13:54 meloxicam; ph 13:54 [place]; ph 13:54 PENICILLINS; ph 13:54 Sulfa (Sulfonamide Antibiotics); ph 13:54 tramadol; ph 13:54 Vicodin; ph - PMHx: 13:54 Fibromyalgia; Hyperlipidemia; Hypertension; Sjogren's Syndrome; ph - Immunization history:: Adult Immunizations unknown. - Social history:: Smoking status: Patient denies any tobacco usage or history of. ROS: 16:57 Constitutional: Negative for fever, chills, and weight loss, Eyes: Negative for injury, kdr pain, redness, and discharge, ENT: Negative for injury, pain, and discharge, Neck: Negative for injury, pain, and swelling, Cardiovascular: Negative for chest pain, palpitations, and edema, Respiratory: Negative for shortness of breath, cough, wheezing, and pleuritic chest pain, Abdomen/GI: Negative for abdominal pain, nausea, vomiting, diarrhea, and constipation, Back: Negative for injury and pain, : Negative for injury, bleeding, discharge, and swelling, MS/Extremity: Negative for injury and deformity, Skin: Negative for injury, rash, and discoloration, Neuro: Negative for headache, weakness, numbness, tingling, and seizure activity. Psych: Negative for depression, anxiety, suicide ideation, homicidal ideation, and hallucinations, Allergy/Immunology: Negative for hives, rash, and allergies, Endocrine: Negative for neck swelling, polydipsia, polyuria, polyphagia, and marked weight changes, Hematologic/Lymphatic: Negative for swollen nodes, abnormal bleeding, and unusual bruising, Exam: 15:19 ECG was reviewed by the Attending Physician. kdr 16:57 Constitutional: This is a well developed, well nourished patient who is awake, alert, kdr and in no acute distress. Head/Face: Normocephalic, atraumatic. Eyes: Pupils equal round and reactive to light, extra-ocular motions intact. Lids and lashes normal. Conjunctiva and sclera are non-icteric and not injected. Cornea within normal limits. Periorbital areas with no swelling, redness, or edema. Neck: Trachea midline, no thyromegaly or masses palpated, and no cervical lymphadenopathy. Supple, full range of motion without nuchal rigidity, or vertebral point tenderness. No Meningismus. Chest/axilla: Normal chest wall appearance and motion. Nontender with no deformity. No lesions are appreciated. Cardiovascular: Regular rate and rhythm with a normal S1 and S2. No gallops, murmurs, or rubs. Normal PMI, no JVD. No pulse deficits. Respiratory: Lungs have equal breath sounds bilaterally, clear to auscultation and percussion. No rales, rhonchi or wheezes noted. No increased work of breathing, no retractions or nasal flaring. Abdomen/GI: Soft, non-tender, with normal bowel sounds. No distension or tympany. No guarding or rebound. No evidence of tenderness throughout. Back: No spinal tenderness. No costovertebral tenderness. Full range of motion. Skin: Warm, dry with normal turgor. Normal color with no rashes, no lesions, and no evidence of cellulitis. MS/ Extremity: Pulses equal, no cyanosis. Neurovascular intact. Full, normal range of motion. Neuro: Awake and alert, GCS 15, oriented to person, place, time, and situation. Cranial nerves II-XII grossly intact. Motor strength 5/5 in all extremities. Sensory grossly intact. Cerebellar exam normal. Normal gait. Psych: Awake, alert, with orientation to person, place and time. Behavior, mood, and affect are within normal limits. Vital Signs: 13:50 BP 180 / 98; Pulse 60; Resp 18; Temp 98; Pulse Ox 100% on R/A; Weight 58.97 kg; Height ph 5 ft. 4 in. ; 14:00 BP 167 / 86; Pulse 67; Resp 16; Temp 98.1; Pulse Ox 99% on R/A; rs5 15:18 BP 152 / 77; Pulse 66; Resp 17; Pulse Ox 99% on R/A; rs5 16:39 BP 156 / 77; Pulse 77; Resp 17; Pulse Ox 99% on R/A; rs5 13:50 Body Mass Index 22.31 (58.97 kg, 162.56 cm) ph MDM: 16:49 Patient medically screened. kdr 16:57 Data reviewed: vital signs, nurses notes, lab test result(s), radiologic studies. [facility] 12/24 14:03 Order name: Basic Metabolic Panel; Complete Time: 15:36 [facility] 12/24 14:03 Order name: CBC with Diff; Complete Time: 15:36 [facility] 12/24 14:03 Order name: LFT's; Complete Time: 15:36 [facility] 12/24 14:03 Order name: Magnesium; Complete Time: 15:36 [facility] 12/24 14:03 Order name: NT PRO-BNP; Complete Time: 15:36 [facility] 12/24 14:03 Order name: Troponin HS; Complete Time: 15:36 [facility] 12/24 14:03 Order name: XRAY Chest (1 view); Complete Time: 15:36 [facility] 12/24 14:04 Order name: CT Head Brain wo Cont; Complete Time: 15:36 [facility] 12/24 14:03 Order name: EKG; Complete Time: 14:04 [facility] 12/24 14:03 Order name: Cardiac monitoring; Complete Time: 14:28 kdr 12/24 14:03 Order name: EKG - Nurse/Tech; Complete Time: 14:28 kdr 12/24 14:03 Order name: IV Saline Lock; Complete Time: 14: kdr 12/24 14:03 Order name: Labs collected and sent; Complete Time: 14: kdr 12/24 14:03 Order name: O2 Per Protocol; Complete Time: 14: kdr 12/24 14:03 Order name: O2 Sat Monitoring; Complete Time: 14: kdr 12/24 15:16 Order name: VS Recheck; Complete Time: 15:16 kdr EC:19 Rate is 55 beats/min. Rhythm is regular, Sinus bradycardia with No ectopy. QRS [place] is kdr Normal. AL interval is normal. Clinical impression: NSR w/ Non-specific ST/T Changes. Administered Medications: No medications were administered Disposition Summary: 12/24/22 16:49 Discharge Ordered Problem: new kdr Symptoms: have improved kdr Condition: Stable kdr Diagnosis - Hypertensive heart disease without heart failure kdr Followup: kdr - With: Private Physician - When: 2 - 3 days - Reason: If symptoms return, Further diagnostic work-up, Recheck today's complaints, Continuance of care, Re-evaluation by your physician Discharge Instructions: - Discharge Summary Sheet kdr - Hypertension, Adult, [id number] kdr Forms: - Medication Reconciliation Form kdr - Thank You Letter kdr - Patient Portal Instructions kdr - Leadership Thank You Letter kdr Signatures: Dispatcher [employer] Javier West MD MD kdr Evelyn Freeman, RN RN Richmond Downing RN RN rs5
--- NOTE | 2022-12-24 16:49 | ER ---
Nurse's Notes [facility] Name: Chloé Engel Age: 72 yrs Sex: Female : 1950 Arrival Date: 12/24/2022 Time: 13:45 Bed 16 Private MD: Diagnosis: Hypertensive heart disease without heart failure Presentation: 12/24 13:50 Chief complaint: Patient states: BP at home 208/106, states that it was 190 systolic ph last night before bed, " I was hoping it would go down when I slept but it didn't" States that she takes ramipril in am for BP, did not take it this morning, reports headache, states, " I feel weird." Triage BP 180/98. Coronavirus screen: Vaccine status:. Ebola Screen: No symptoms or risks identified at this time. Initial Sepsis Screen: Does the patient meet any 2 criteria? No. Patient's initial sepsis screen is negative. Does the patient have a suspected source of infection? No. Patient's initial sepsis screen is negative. Risk Assessment: Do you want to hurt yourself or someone else? Patient reports no desire to harm self or others. Onset of symptoms was December 24, 2022. 13:50 Method Of Arrival: Ambulatory ph 13:50 Acuity: [place] 3 ph Historical: - Allergies: 13:54 ACETAMINOPHEN; ph 13:54 Cephalexin; ph 13:54 HYDROCODONE; ph 13:54 Keflex; ph 13:54 meloxicam; ph 13:54 [place]; ph 13:54 PENICILLINS; ph 13:54 Sulfa (Sulfonamide Antibiotics); ph 13:54 tramadol; ph 13:54 Vicodin; ph - PMHx: 13:54 Fibromyalgia; Hyperlipidemia; Hypertension; Sjogren's Syndrome; ph - Immunization history:: Adult Immunizations unknown. - Social history:: Smoking status: Patient denies any tobacco usage or history of. Screenin:56 [facility] ED Fall Risk Assessment (Adult) History of falling in the last 3 months, rs5 including since admission No falls in past 3 months (0 pts) Confusion or Disorientation No (0 pts) Intoxicated or Sedated No (0 pts) Impaired Gait No (0 pts) Mobility Assist Device Used No (0 pt) Altered Elimination No (0 pt) Score/Fall Risk Level 0 - 2 = Low Risk Oriented to surroundings, Maintained a safe environment. Abuse screen: Denies threats or abuse. Nutritional screening: No deficits noted. Tuberculosis screening: No symptoms or risk factors identified. Assessment: 13:56 General: Appears in no apparent distress. comfortable, Behavior is calm, cooperative. rs5 Pain: Denies pain. Neuro: Level of Consciousness is awake, alert, obeys commands, Oriented to person, place, time, situation. Cardiovascular: Heart tones S1 S2 present Rhythm is regular. Respiratory: Airway is patent Respiratory effort is even, unlabored, Respiratory pattern is regular, symmetrical, Breath sounds are clear bilaterally. GI: Abdomen is round non-distended, Bowel sounds present X 4 quads. Abd is soft and non tender X 4 quads. : No signs and/or symptoms were reported regarding the genitourinary system. EENT: No signs and/or symptoms were reported regarding the EENT system. Derm: Skin is intact, Skin is pink, warm \\T\\ dry. Musculoskeletal: Range of motion: intact in all extremities. 15:14 Reassessment: Patient and/or family updated on plan of care and expected duration. Pain rs5 level reassessed. Patient is alert, oriented x 3, equal unlabored respirations, skin warm/dry/pink. 16:38 Reassessment: Patient and/or family updated on plan of care and expected duration. Pain rs5 level reassessed. Patient is alert, oriented x 3, equal unlabored respirations, skin warm/dry/pink. Cardiovascular: Rhythm is regular. Respiratory: Airway is patent Respiratory effort is even, unlabored, Respiratory pattern is regular, symmetrical. Vital Signs: 13:50 BP 180 / 98; Pulse 60; Resp 18; Temp 98; Pulse Ox 100% on R/A; Weight 58.97 kg; Height ph 5 ft. 4 in. ; 14:00 BP 167 / 86; Pulse 67; Resp 16; Temp 98.1; Pulse Ox 99% on R/A; rs5 15:18 BP 152 / 77; Pulse 66; Resp 17; Pulse Ox 99% on R/A; rs5 16:39 BP 156 / 77; Pulse 77; Resp 17; Pulse Ox 99% on R/A; rs5 13:50 Body Mass Index 22.31 (58.97 kg, 162.56 cm) ph ED Course: 13:48 Patient arrived in ED. im 13:48 Javier Estrada MD is Attending Physician. kdr 13:54 Triage completed. ph 13:55 Arm band placed on Patient placed in an exam room. ph 13:56 Patient has correct armband on for positive identification. Bed in low position. Call rs5 light in reach. Side rails up X2. 14:14 CT Head Brain wo Cont In Process Unspecified. EDMS 14:19 Richmond Downing, RN is Primary Nurse. rs5 14:24 XRAY Chest (1 view) In Process Unspecified. EDMS 14:24 Initial lab(s) drawn, by mo, sent to lab. Inserted saline lock: 20 gauge in right aa5 antecubital area, using aseptic technique. Blood collected. 17:04 IV discontinued, intact, bleeding controlled, No redness/swelling at site. Pressure rs5 dressing applied. 17:04 No provider procedures requiring assistance completed. rs5 Administered Medications: No medications were administered Medication: 15:19 VIS not applicable for this client. rs5 Outcome: 16:49 Discharge ordered by . kdr 17:04 Discharged to home ambulatory, rs5 17:04 Condition: stable 17:04 Discharge instructions given to patient, Instructed on discharge instructions, follow up and referral plans. Demonstrated understanding of instructions, follow-up care, 17:04 Patient left the ED. rs5 Signatures: Dispatcher [employer] EDID Javier Estrada MD MD [facility] Indy Gomez, RN RN aa5 Evelyn Freeman RN RN Richmond Downing, RN RN rs5 Jeanette Lawson im
[2022-12-24 17:20] VITALS: TEMP 98.1; O2SAT 99
[2022-12-24 17:31] VITALS: BP 156/77
--- NOTE | 2022-12-30 17:12 | EKG ---
Test Date: 2022-12-24 Test Time: 14:22:55 Semi Truck Driver: LENARD MEASUREMENT RESULTS: Intervals: Rate: 55 MS: 200 QRSD: 96 QT: 492 QTc: 470 [place]: P: 52 MS: 200 QRS: 41 T: 74 INTERPRETIVE STATEMENTS: Sinus bradycardia Septal infarct, age undetermined Abnormal ECG Compared to ECG 10/17/2020 11:38:52 Myocardial infarct finding now present Prolonged QT interval no longer present Electronically Signed On 12-30-22 16:56:58 CONTACT LENS FITTER by Billy Henry
== END 2022-12-24 17:04 | disposition home or self-care (01) ==
LOC: ER 13:45
DX: I11.9 Hypertensive heart disease without heart failure (principal); I10 Essential (primary) hypertension; Z88.0 Allergy status to penicillin; Z88.1 Allergy status to other antibiotic agents; Z88.2 Allergy status to sulfonamides; Z88.5 Allergy status to narcotic agent; Z88.6 Allergy status to analgesic agent; Z88.8 Allergy status to other drugs, medicaments and biological substances
CPT/HCPCS: 36415; 70450; 71045; 80048; 80076; 83735; 83880; 84484; 85025; 93005; 99284

== ENCOUNTER 2024-03-24 20:17 | Emergency (ER) | payer OTHER ==
[2024-03-24] MEDS ORDERED: ONDANSETRON 4 MG/2 ML VIAL ONE (20:29)
[2024-03-24] MEDS ORDERED: NA CHLORIDE 0.9% 1,000 ML ONE (20:29)
[2024-03-24 20:42] LABS: Absolute Eosinophils 0.1 K/uL (0-0.5); Absolute Lymphocytes (CBC) 1.9 K/uL (0.7-4.9); Absolute Monocytes 0.5 K/uL (0.1-1.3); Absolute Neutrophil 2.8 K/uL (1.8-8.0); Basophils % 0.7 % (0-1.3); Eosinophils % 2.4 % (0-4.4); Hematocrit 39.4 % (36.0-45.0); Hemoglobin 13.3 g/dL (12.0-15.0); Lymphocytes % 35.6 % (15.3-44.8); MCH 30.8 pg (27.0-35.0); MCHC 33.6 g/dL (32.0-36.0); MCV 91.5 fL (80-100); MPV 8.5 fL (7.6-11.3); Monocytes % 8.9 % (3.3-12.3); Neutrophils % 52.4 % (41.7-73.7); Nucleated Red Blood Cells % 0.1 % (0-0); Platelets 160 thou/uL (152-406); RBC Red Blood Cell Count 4.31 M/uL (3.86-4.86); Red Cell Distribution Width 12.6 % (12.1-15.2)
[2024-03-24 20:50] LABS: PT Prothrombin Time 11.8 SECONDS (9.4-12.5); Protime INR 1.13
[2024-03-24 21:05] LABS: ALT/SGPT 20 U/L (13-56); AST/SGOT 21 U/L (15-37); Albumin 3.4 g/dL (3.4-5.0); Alkaline Phosphatase 63 U/L (45-117); Anion Gap 9.1 mEq/L (5.0-15.0); BUN Blood Urea Nitrogen 17 mg/dL (7-18); Bicarbonate 25 mEq/L (21-32); Bilirubin Direct < 0.2 mg/dL (0-0.2); Bilirubin Total 0.2 mg/dL (0.2-1.0); Globulin 3.5 g/dL (2.3-3.5); Glomerular Filtration Rate 74 ml/min (=/>90); Glucose Level 125 mg/dL (74-106); NT PRO-BNP 304 pg/mL (<125); Potassium 3.1 mEq/L (3.5-5.1); Protein, Total 6.9 g/dL (6.4-8.2); Sodium Level 140 mEq/L (136-145); Troponin High Sensitivity 8.9 pg/mL (<58.9)
--- NOTE | 2024-03-24 21:23 | RAD REPORT ---
EXAM: CT brain without contrast HISTORY: Syncope COMPARISON: 2022 TECHNIQUE: Multiple contiguous axial images were obtained and a CT of the brain without contrast.. Sagittal and coronal reconstruction performed. Automated exposure control, adjustment of the mA and/or kV according to patient size, and/or iterative reconstruction. Unless otherwise specified, incidental f indings do not require dedicated imaging follow-up FINDINGS: An intracranial bleed is not seen Ventricles are normal caliber No extra-axial fluid collection noted No significant hypodensity within the brain No fluid within the visualized sinuses or mastoids noted. IMPRESSION: No acute intracranial abnormality noted. If the patient continues to have symptoms to suggest an acute intracranial abnormality then MRI of th e brain would be recommended.
--- NOTE | 2024-03-24 21:24 | RAD REPORT ---
Procedure: Chest Single View HISTORY: Chest pain COMPARISON: 2022 FINDINGS: The lungs appear clear of acute infiltrate. No significant pleural effusion noted. The heart is mildly enlarged.. IMPRESSION: No acute abnormality is displayed.
--- NOTE | 2024-03-24 22:23 | EDPHYS ---
Physician Documentation [facility] Name: Chloé Engel Age: 74 yrs Sex: Female : 1950 Arrival Date: 03/24/2024 Time: 20:17 Bed 3 Private MD: ED Physician Pepito Kasper HPI: 03/24 20:24 This 74 yrs old Female presents to ER via Unassigned with complaints of sp4 Syncope. 03/25 04:41 Is a 74-year-old female presents with complaint of acute syncopal episode. . sp4 Historical: - Allergies: 03/24 20:38 ACETAMINOPHEN; kj2 20:38 Cephalexin; kj2 20:38 HYDROCODONE; kj2 20:38 Keflex; kj2 20:38 [place]; kj2 20:38 meloxicam; kj2 20:38 PENICILLINS; kj2 20:38 Sulfa (Sulfonamide Antibiotics); kj2 20:38 tramadol; kj2 20:38 Vicodin; kj2 - Home Meds: 20:38 Aspirin Oral [Active]; atorvastatin Oral [Active]; Baclofen Oral [Active]; kj2 - PMHx: 20:38 Fibromyalgia; Hyperlipidemia; Hypertension; Sjogren's Syndrome; kj2 - PSHx: 20:38 Unable to Obtain; kj2 - Immunization history:: Adult Immunizations up to date. - Infectious Disease History:: Denies. - Social history:: Smoking status: Patient denies any tobacco usage or history of. - Family history:: not pertinent. ROS: 03/25 04:41 Constitutional: Negative for fever, chills, and weight loss, positive for syncope sp4 All other systems are negative, Exam: 04:41 Constitutional: This is a well developed, well nourished patient who is awake, alert, sp4 and in no acute distress. Head/Face: Normocephalic, atraumatic. Eyes: Pupils equal round and reactive to light, extra-ocular motions intact. Lids and lashes normal. Conjunctiva and sclera are not injected. Cornea within normal limits. Periorbital areas with no swelling, redness, or edema. ENT: Nares patent. No nasal discharge, no septal abnormalities noted. Tympanic membranes are normal and external auditory canals are clear. Oropharynx with no redness, swelling, or masses, exudates, or evidence of obstruction, uvula midline. Mucous membranes moist. Neck: Trachea midline, no thyromegaly or masses palpated, and no cervical lymphadenopathy. Supple, full range of motion without nuchal rigidity, or vertebral point tenderness. Chest/axilla: Normal chest wall appearance and motion. Nontender with no deformity. No lesions are appreciated. Cardiovascular: Regular rate and rhythm with a normal S1 and S2. No gallops, murmurs, or rubs. Normal PMI, no JVD. No pulse deficits. Respiratory: Lungs have equal breath sounds bilaterally, clear to auscultation and percussion. No rales, rhonchi or wheezes noted. No increased work of breathing, no retractions or nasal flaring. Abdomen/GI: Soft, with normal bowel sounds. No distension or tympany. No guarding or rebound. No evidence of tenderness throughout. Back: No spinal tenderness. No costovertebral tenderness. Skin: Warm, dry with normal turgor. Normal color with no rashes, no lesions, and no evidence of cellulitis. MS/ Extremity: Pulses equal, no cyanosis. Neurovascular intact. Full, normal range of motion. Neuro: Awake and alert, GCS 15, oriented to person, place, time, and situation. Cranial nerves II-XII grossly intact. Motor strength 5/5 in all extremities. Sensory grossly intact. Psych: Awake, alert, with orientation to person, place and time. Behavior, mood, and affect are within normal limits 04:47 ECG was reviewed by the Attending Physician. EKG at 2020 sinus bradycardia sp4 first-degree AV block. Rate 50 Vital Signs: 03/24 20:23 BP 81 / 55; Pulse 50; Resp 20; Temp 98.3; Pulse Ox 94% on R/A; Weight 64.86 kg; Height kj2 5 ft. 5 in. ; Pain 0/10; 20:42 BP 93 / 56; Pulse 53; Resp 18; Temp 98.3; Pulse Ox 92% ; Pain 0/10; kj2 21:50 BP 117 / 65; Pulse 56; Resp 18; Pulse Ox 99% on R/A; kj2 22:30 BP 135 / 77; Pulse 57; Resp 16; Temp 98.3; Pulse Ox 100% ; Pain 0/10; kj2 20:23 Body Mass Index 23.80 (64.86 kg, 165.1 cm) kj2 20:23 Pain Scale: Adult kj2 20:42 Pain Scale: Adult kj2 22:30 Pain Scale: Adult kj2 NIH Stroke Scale Scores: 20:23 NIHSS Score: 0 kj2 03/25 04:41 NIHSS Score: 0 sp4 Nikhil Coma Score: 03/24 20:42 Eye Response: spontaneous(4). Motor Response: obeys commands(6). Verbal Response: kj2 oriented(5). Total: 15. 22:30 Eye Response: spontaneous(4). Motor Response: obeys commands(6). Verbal Response: kj2 oriented(5). Total: 15. 03/25 04:41 Eye Response: spontaneous(4). Motor Response: obeys commands(6). Verbal Response: sp4 oriented(5). Total: 15. MDM: 03/24 20:25 Medical Screening Exam initiated sp4 03/25 04:49 Differential Diagnosis: cardiac arrhythmia, cerebrovascular accident, drug effect, sp4 emotional response, idiopathic syncope. Data reviewed: vital signs, nurses notes, lab test result(s), EKG, radiologic studies, CT scan, plain films. ED course: EXAM: CT brain without contrast HISTORY: Syncope COMPARISON: 2022 TECHNIQUE: Multiple contiguous axial images were obtained and a CT of the brain without contrast.. Sagittal and coronal reconstruction performed. Automated exposure control, adjustment of the mA and/or kV according to patient size, and/or iterative reconstruction. Unless otherwise specified, incidental findings do not require dedicated imaging follow-up FINDINGS: An intracranial bleed is not seen Ventricles are normal caliber No extra-axial fluid collection noted No significant hypodensity within the brain No fluid within the visualized sinuses or mastoids noted. IMPRESSION: No acute intracranial abnormality noted. If the patient continues to have symptoms to suggest an acute intracranial abnormality then MRI of the brain would be recommended.. ED course: Procedure: Chest Single View HISTORY: Chest pain COMPARISON: 2022 FINDINGS: The lungs appear clear of acute infiltrate. No significant pleural effusion noted. The heart is mildly enlarged.. IMPRESSION: No acute abnormality is displayed. . 07:00 Consideration of Admission/Observation Escalation of care including sp4 admission/observation considered. 03/24 20:24 Order name: Basic Metabolic Panel; Complete Time: 22:03/24 20:24 Order name: CBC with Diff; Complete Time: 22:03/24 20:24 Order name: LFT's; Complete Time: 22:03/24 20:24 Order name: Magnesium; Complete Time: 22:15 03/24 20:24 Order name: NT PRO-BNP; Complete Time: :03/24 20:24 Order name: PT-INR; Complete Time: 22:03/24 20:24 Order name: Troponin HS; Complete Time: 22:15 03/24 20:25 Order name: TSH; Complete Time: :03/24 20:25 Order name: T4 Free; Complete Time: :03/24 20:25 Order name: Influenza Screen (a \T\ B); Complete Time: 22:03/24 20:24 Order name: CT Head Brain wo Cont; Complete Time: :03/24 20:24 Order name: XRAY Chest (1 view); Complete Time: 22:03/24 20:24 Order name: Cardiac monitoring; Complete Time: 20:35 03/24 20:24 Order name: EKG - Nurse/Tech; Complete Time: 20:35 03/24 20:24 Order name: IV Saline Lock; Complete Time: 20:35 03/24 20:24 Order name: Labs collected and sent; Complete Time: 20:35 03/24 20:24 Order name: O2 Per Protocol; Complete Time: 20:35 03/24 20:24 Order name: O2 Sat Monitoring; Complete Time: 20:35 EC/14 20:21 Rate is 50 beats/min. Rhythm is regular, Sinus bradycardia. QRS [place] is Normal. [place] sp4 interval is prolonged. QRS interval is normal. QT interval is normal. No Q waves. T waves are Normal. No ST changes noted. Clinical impression: No evidence of ischemia. Interpreted by me. Reviewed by me. Administered Medications: 20:35 Drug: NS 0.9% IV 1000 ml IV at 1 bolus Per protocol; to be given as a bolus over 60 kj2 minutes Route: IV; Rate: 1 bolus; Site: left antecubital; 22:30 Follow up: Response: No adverse reaction; IV Status: Completed infusion; IV Intake: kj2 1000ml 20:35 Drug: Ondansetron IVP 4 mg IVP once; over 2 minutes Route: IVP; Site: left antecubital; kj2 22:30 Follow up: Response: No adverse reaction kj2 Disposition: 03/25 04:50 Chart complete. sp4 Disposition Summary: 03/24/24 22:22 Discharge Ordered Problem: new sp4 Symptoms: have improved sp4 Condition: Fair sp4 Diagnosis - Syncope and Collapse, Acute Stress Reaction sp4 Followup: sp4 - With: Private Physician - When: 7 - 10 days - Reason: Recheck today's complaints Discharge Instructions: - Discharge Summary Sheet sp4 - Syncope, [id number] sp4 Forms: - Patient Portal Instructions sp4 NIH Stroke Scale - NIH Stroke Score Date: 03/24/2024 Time: 20:23 Total Score = 0 10. Dysarthria (speech clarity - read or repeat words) - 0(Normal) 11. Extinction and Inattention (visual/tactile/auditory/spatial/personal) - 0(No abnormality) 1a. Level of Consciousness (LOC) - 0(Alert) 1b. Level of Consciousness (LOC) (Month \T\ Age) - 0(Both) 1c. LOC Commands (Open \T\ Closes Eyes/Beauty Consultant) - 0(Both) 2. Best Gaze (Lateral Gaze Paresis) - 0(Normal) 3. Visual Field Loss - 0(No visual loss) 4. Facial Palsy - 0(Normal) 5a. Left Arm: Motor (10-second hold) - 0(No drift) 5b. Right Arm: Motor (10-second hold) - 0(No drift) 6a. Left Leg: Motor (5-second hold - always test supine) - 0(No drift) 6b. Right Leg: Motor (5-second hold - always test supine) - 0(No drift) 7. Limb Ataxia (finger/nose \T\ heel/locke - test with eyes open) - 0(Absent) 8. Sensory Loss (pinprick arms/legs/face) - 0(Normal) 9. Best Language: Aphasia (description/naming/reading) - 0(No aphasia) Initials: kj2 NIH Stroke Scale - NIH Stroke Score Date: 03/25/2024 Time: 04:41 Total Score = 0 10. Dysarthria (speech clarity - read or repeat words) - 0(Normal) 11. Extinction and Inattention (visual/tactile/auditory/spatial/personal) - 0(No abnormality) 1a. Level of Consciousness (LOC) - 0(Alert) 1b. Level of Consciousness (LOC) (Month \T\ Age) - 0(Both) 1c. LOC Commands (Open \T\ Closes Eyes/Beauty Consultant) - 0(Both) 2. Best Gaze (Lateral Gaze Paresis) - 0(Normal) 3. Visual Field Loss - 0(No visual loss) 4. Facial Palsy - 0(Normal) 5a. Left Arm: Motor (10-second hold) - 0(No drift) 5b. Right Arm: Motor (10-second hold) - 0(No drift) 6a. Left Leg: Motor (5-second hold - always test supine) - 0(No drift) 6b. Right Leg: Motor (5-second hold - always test supine) - 0(No drift) 7. Limb Ataxia (finger/nose \T\ heel/locke - test with eyes open) - 0(Absent) 8. Sensory Loss (pinprick arms/legs/face) - 0(Normal) 9. Best Language: Aphasia (description/naming/reading) - 0(No aphasia) Initials: sp4 Signatures: Dispatcher [employer] EDPepito Lara MD MD sp4 Alice Oquendo RN RN kj2 Corrections: (The following items were deleted from the chart) 03/24 20:25 20:25 THYROID STIMULAT HORMONE+C.LAB.BRZ ordered. EDMS EDMS 20:25 20:25 T4 FREE+C.LAB.BRZ ordered. EDMS EDMS 20:25 20:25 Influenza Screen (A \T\ B)+BA.LAB.BRZ ordered. EDMS EDMS
--- NOTE | 2024-03-24 22:23 | ER ---
Nurse's Notes [facility] Name: Chloé Engel Age: 74 yrs Sex: Female : 1950 Arrival Date: 03/24/2024 Time: 20:17 Bed 3 Private MD: Diagnosis: Syncope and Collapse, Acute Stress Reaction Presentation: 03/24 20:23 Chief complaint: This nurse witness pt leave another pt's room and the pass out on the kj2 floor. Pt was unconscious for approx. 10-15secs. Coronavirus screen: At this time, the client does not indicate any symptoms associated with coronavirus-19. Ebola Screen: Patient negative for fever greater than or equal to 101.5 degrees Fahrenheit, and additional compatible Ebola Virus Disease symptoms Patient denies exposure to infectious person. Patient denies travel to an Ebola-affected area in the 21 days before illness onset. No symptoms or risks identified at this time. 20:23 Method Of Arrival: Ambulatory 2 20:23 Initial Sepsis Screen: Does the patient meet any 2 criteria? Systolic BP < 90 mmHg. No. kj2 Patient's initial sepsis screen is negative. Does the patient have a suspected source of infection? No. Patient's initial sepsis screen is negative. Risk Assessment: Do you want to hurt yourself or someone else? Patient reports no desire to harm self or others. Onset of symptoms was March 24, 2024 at 20:24. 20:23 Acuity: MASON 2 kj2 Triage Assessment: 20:23 General: Appears distressed, uncomfortable, Behavior is cooperative, drowsy. kj2 20:23 Pain: Denies pain. EENT: No deficits noted. No signs and/or symptoms were reported kj2 regarding the EENT system. Neuro: Level of Consciousness is awake, alert, obeys commands, Oriented to person, place, time, situation, Appropriate for age Reports dizziness. Cardiovascular: Reports syncope, Heart tones S1 S2 present Capillary refill < 3 seconds in bilateral fingers toes pt is diaphoretic and warm to touch. Rhythm is sinus bradycardia. Respiratory: Airway is patent Trachea midline Respiratory effort is even, unlabored, Respiratory pattern is regular, symmetrical, Breath sounds are clear bilaterally. GI: Abdomen is flat, non-distended, Bowel sounds present X 4 quads. Reports nausea. : No signs and/or symptoms were reported regarding the genitourinary system. Derm: No signs and/or symptoms reported regarding the dermatologic system. Musculoskeletal: No signs and/or symptoms reported regarding the musculoskeletal system. Historical: - Allergies: 20:38 ACETAMINOPHEN; kj2 20:38 Cephalexin; kj2 20:38 HYDROCODONE; kj2 20:38 Keflex; kj2 20:38 [place]; kj2 20:38 meloxicam; kj2 20:38 PENICILLINS; kj2 20:38 Sulfa (Sulfonamide Antibiotics); kj2 20:38 tramadol; kj2 20:38 Vicodin; kj2 - Home Meds: 20:38 Aspirin Oral [Active]; atorvastatin Oral [Active]; Baclofen Oral [Active]; kj2 - PMHx: 20:38 Fibromyalgia; Hyperlipidemia; Hypertension; Sjogren's Syndrome; kj2 - PSHx: 20:38 Unable to Obtain; kj2 - Immunization history:: Adult Immunizations up to date. - Infectious Disease History:: Denies. - Social history:: Smoking status: Patient denies any tobacco usage or history of. - Family history:: not pertinent. Screenin:42 [facility] ED Fall Risk Assessment (Adult) History of falling in the last 3 months, kj2 including since admission Yes- physiologic fall (2 pts) Confusion or Disorientation No (0 pts) Intoxicated or Sedated No (0 pts) Impaired Gait No (0 pts) Mobility Assist Device Used No (0 pt) Altered Elimination No (0 pt) Score/Fall Risk Level 0 - 2 = Low Risk Oriented to surroundings, Maintained a safe environment, Educated pt \T\ family on fall prevention, incl call for assistance when getting out of bed, Assessed \T\ reinforced patient's understanding of fall precautions, Hourly rounding (assess needs \T\ fall precautionary measures) done, Used ambulatory aids as needed (educated on \T\ assisted with), Used gait belt as appropriate. Abuse screen: Denies threats or abuse. Nutritional screening: No deficits noted. Tuberculosis screening: No symptoms or risk factors identified. Assessment: 20:42 Reassessment: Patient appears in no apparent distress at this time. Patient and/or kj2 family updated on plan of care and expected duration. Pain level reassessed. Patient is alert, oriented x 3, equal unlabored respirations, skin warm/dry/pink. Patient denies pain at this time. Patient states symptoms have improved. General: Appears in no apparent distress. comfortable, Behavior is calm, cooperative, appropriate for age. Neuro: No deficits noted. Level of Consciousness is awake, alert, obeys commands, Oriented to person, place, time, situation, Appropriate for age Reports dizziness. Cardiovascular: Capillary refill < 3 seconds in bilateral fingers Patient's skin is warm and dry. Rhythm is sinus bradycardia. Respiratory: Airway is patent Trachea midline Respiratory effort is even, unlabored, Respiratory pattern is regular, symmetrical, Breath sounds are clear bilaterally. 21:44 Reassessment: Patient appears in no apparent distress at this time. Patient and/or kj2 family updated on plan of care and expected duration. Pain level reassessed. Patient is alert, oriented x 3, equal unlabored respirations, skin warm/dry/pink. 22:30 Reassessment: Patient appears in no apparent distress at this time. Patient and/or kj2 family updated on plan of care and expected duration. Pain level reassessed. Patient is alert, oriented x 3, equal unlabored respirations, skin warm/dry/pink. Patient denies pain at this time. Patient states feeling better. Patient states symptoms have improved. Vital Signs: 20:23 BP 81 / 55; Pulse 50; Resp 20; Temp 98.3; Pulse Ox 94% on R/A; Weight 64.86 kg; Height kj2 5 ft. 5 in. ; Pain 0/10; 20:42 BP 93 / 56; Pulse 53; Resp 18; Temp 98.3; Pulse Ox 92% ; Pain 0/10; kj2 21:50 BP 117 / 65; Pulse 56; Resp 18; Pulse Ox 99% on R/A; kj2 22:30 BP 135 / 77; Pulse 57; Resp 16; Temp 98.3; Pulse Ox 100% ; Pain 0/10; kj2 20:23 Body Mass Index 23.80 (64.86 kg, 165.1 cm) kj2 20:23 Pain Scale: Adult kj2 20:42 Pain Scale: Adult kj2 22:30 Pain Scale: Adult kj2 Morgan Coma Score: 20:42 Eye Response: spontaneous(4). Motor Response: obeys commands(6). Verbal Response: kj2 oriented(5). Total: 15. 22:30 Eye Response: spontaneous(4). Motor Response: obeys commands(6). Verbal Response: kj2 oriented(5). Total: 15. 03/25 04:41 Eye Response: spontaneous(4). Motor Response: obeys commands(6). Verbal Response: sp4 oriented(5). Total: 15. NIH Stroke Scale Scores: 03/24 20:23 NIHSS Score: 0 kj2 03/25 04:41 NIHSS Score: 0 sp4 ED Course: 03/24 20:21 Patient arrived in ED. jj6 20:23 Arm band placed on right wrist. kj2 20:24 Pepito Kasper MD is Attending Physician. sp4 20:28 Alice Oquendo RN is Primary Nurse. kj2 20:38 Triage completed. kj2 20:42 Patient has correct armband on for positive identification. Placed in gown. Bed in low kj2 position. Call light in reach. Side rails up X 1. Client placed on continuous cardiac and pulse oximetry monitoring. NIBP monitoring applied. commercial real estate associate on. Pulse ox on. NIBP on. Door closed. Noise minimized. Warm blanket given. Pillow given. Verbal reassurance given. Head of bed elevated. 20:42 No provider procedures requiring assistance completed. Initial lab(s) drawn, by me, kj2 sent to lab. Inserted saline lock: 20 gauge in left antecubital area, using aseptic technique. 21:19 CT Head Brain wo Cont In Process Unspecified. EDMS 21:21 XRAY Chest (1 view) In Process Unspecified. EDMS 22:30 Provided Education on: post er care. kj2 22:30 IV discontinued, intact, bleeding controlled, No redness/swelling at site. Pressure kj2 dressing applied. Administered Medications: 20:35 Drug: NS 0.9% IV 1000 ml IV at 1 bolus Per protocol; to be given as a bolus over 60 kj2 minutes Route: IV; Rate: 1 bolus; Site: left antecubital; 22:30 Follow up: Response: No adverse reaction; IV Status: Completed infusion; IV Intake: kj2 1000ml 20:35 Drug: Ondansetron IVP 4 mg IVP once; over 2 minutes Route: IVP; Site: left antecubital; kj2 22:30 Follow up: Response: No adverse reaction kj2 Medication: 20:42 VIS not applicable for this client. kj2 Intake: 22:30 IV: 1000ml; Total: 1000ml. kj2 Outcome: 22:22 Discharge ordered by . camilo 22:30 Discharged to home ambulatory, kj2 22:30 Condition: stable 22:30 Discharge instructions given to patient, family, Instructed on discharge instructions, follow up and referral plans. no drinking with medication, no driving heavy equipment, medication usage, safety practices, Demonstrated understanding of instructions, follow-up care, medications, 22:31 Patient left the ED. kj2 NIH Stroke Scale - NIH Stroke Score Date: 03/24/2024 Time: 20:23 Total Score = 0 10. Dysarthria (speech clarity - read or repeat words) - 0(Normal) 11. Extinction and Inattention (visual/tactile/auditory/spatial/personal) - 0(No abnormality) 1a. Level of Consciousness (LOC) - 0(Alert) 1b. Level of Consciousness (LOC) (Month \T\ Age) - 0(Both) 1c. LOC Commands (Open \T\ Closes Eyes/Animal Attendant) - 0(Both) 2. Best Gaze (Lateral Gaze Paresis) - 0(Normal) 3. Visual Field Loss - 0(No visual loss) 4. Facial Palsy - 0(Normal) 5a. Left Arm: Motor (10-second hold) - 0(No drift) 5b. Right Arm: Motor (10-second hold) - 0(No drift) 6a. Left Leg: Motor (5-second hold - always test supine) - 0(No drift) 6b. Right Leg: Motor (5-second hold - always test supine) - 0(No drift) 7. Limb Ataxia (finger/nose \T\ heel/locke - test with eyes open) - 0(Absent) 8. Sensory Loss (pinprick arms/legs/face) - 0(Normal) 9. Best Language: Aphasia (description/naming/reading) - 0(No aphasia) Initials: kj2 NIH Stroke Scale - NIH Stroke Score Date: 03/25/2024 Time: 04:41 Total Score = 0 10. Dysarthria (speech clarity - read or repeat words) - 0(Normal) 11. Extinction and Inattention (visual/tactile/auditory/spatial/personal) - 0(No abnormality) 1a. Level of Consciousness (LOC) - 0(Alert) 1b. Level of Consciousness (LOC) (Month \T\ Age) - 0(Both) 1c. LOC Commands (Open \T\ Closes Eyes/Animal Attendant) - 0(Both) 2. Best Gaze (Lateral Gaze Paresis) - 0(Normal) 3. Visual Field Loss - 0(No visual loss) 4. Facial Palsy - 0(Normal) 5a. Left Arm: Motor (10-second hold) - 0(No drift) 5b. Right Arm: Motor (10-second hold) - 0(No drift) 6a. Left Leg: Motor (5-second hold - always test supine) - 0(No drift) 6b. Right Leg: Motor (5-second hold - always test supine) - 0(No drift) 7. Limb Ataxia (finger/nose \T\ heel/locke - test with eyes open) - 0(Absent) 8. Sensory Loss (pinprick arms/legs/face) - 0(Normal) 9. Best Language: Aphasia (description/naming/reading) - 0(No aphasia) Initials: sp4 Signatures: Dispatcher [employer] Pallavi Prieto jj6 Pepito Kasper MD MD sp4 Alice Oquendo RN RN kj2
[2024-03-24 22:38] VITALS: TEMP 98.3
[2024-03-24 22:41] VITALS: BP 135/77; O2SAT 100
== END 2024-03-24 22:31 | disposition home or self-care (01) ==
LOC: ER 20:17
DX: R55 Syncope and collapse (principal); F43.0 Acute stress reaction; I10 Essential (primary) hypertension; Z79.82 Long term (current) use of aspirin
CPT/HCPCS: 96361; 85025; 80048; 36415; 83735; 85610; 80076; 84443; 84484; 84439; 83880; 87804 ×2; 70450; 71045; 96374; 99285; J2405; J7030; 93005